=== PATIENT | female | born 1955 | race Caucasian/White ===

== ENCOUNTER 2023-11-28 11:52 | Outpatient (OUT) | payer MEDICARE, SELFPAY ==
[2023-11-28 12:12] LABS: Basophils Percent Auto 0.6 % (0.2-2.0); Eosinophils Absolute Auto 0.1 10^3/uL (0.0-0.7); Eosinophils Percent Auto 1.5 % (0.9-7.0); Hematocrit 41.2 % (36.0-48.0); Immature Granulocytes Abs Auto 0.01 10^3/uL (0.00-0.03); Immature Granulocytes Pct Auto 0.1 % (0.0-0.5); Lymphocytes Absolute Auto 1.7 10^3/uL (1.2-3.8); Mean Corpuscular HGB Conc 31.6 g/dL (29.9-35.2); Mean Corpuscular Hemoglobin 29.9 pg (26.7-34.0); Mean Corpuscular Volume 94.7 fL (81.0-99.0); Mean Platelet Volume 9.3 fL (9.5-13.5); Monocytes Absolute Auto 0.5 10^3/uL (0.3-0.8); Monocytes Percent Auto 7.6 % (1.7-12.0); Neutrophils Absolute Auto 4.5 10^3/uL (1.4-6.5); Neutrophils Percent Auto 65.2 % (43.0-75.0); Platelet Count 223 10^3/uL (150-450); Red Blood Count 4.35 10^6/uL (4.20-5.40); Red Cell Distribution Width 12.6 % (11.0-15.0); White Blood Count 6.9 10^3/uL (4.0-11.0)
[2023-11-28 14:00] LABS: Alanine Aminotransferase 23 U/L (14-59); Albumin Level 3.7 g/dL (3.4-5.0); Alkaline Phosphatase 102 U/L (46-116); Anion Gap 10.2; Aspartate Amino Transferase 19 U/L (15-37); BUN Creatinine Ratio 19.1; Bilirubin Direct 0.1 mg/dL (0.0-0.2); Bilirubin Total 0.4 mg/dL (0.2-1.0); Calcium 9.1 mg/dL (8.5-10.1); Carbon Dioxide 31.7 mmol/L (21.0-32.0); Chloride 104 mmol/L (98-107); Chol HDL Ratio 3.4; Cholesterol 213 mg/dL (<=200); Estimated GFR (African America >60 (>=60); Estimated GFR (Non-African Ame >60 (>=60); Globulin 3.8 g/dL; Glucose 81 mg/dL (74-106); HDL Cholesterol 63 mg/dL (40-60); Potassium 3.9 mmol/L (3.5-5.1); Sodium 142 mmol/L (136-145); Total Protein 7.5 g/dL (6.4-8.2); Triglycerides 102 mg/dL (<=150); VLDL CHOLESTEROL 20.4 mg/dL
== END 2023-11-28 11:53 | disposition home or self-care (01) ==
LOC: LAB 11:55
PROVIDERS: PCP Family Medicine; Visit Provider Family Medicine
DX: Z79.899 Other long term (current) drug therapy (principal); E78.5 Hyperlipidemia, unspecified; E66.9 Obesity, unspecified
CPT/HCPCS: 36415; 80048; 80061; 80076; 84443; 85025

== ENCOUNTER 2024-12-18 12:25 | Outpatient (OUT) | payer MEDICARE, SELFPAY ==
--- OUTSIDE RECORDS SUMMARY | 2024-12-18 12:39 | XMS_ITS | CCD ---
Author Organization [facility] Care Team Providers Care Marine Mechanic Name Role Phone Unavailable Primary Care Provider Unavailabl e DAVIS, DOV Referring Unavailable DAVIS, DOV Referring Unavailable DAVIS, DOV Referring Unavailable DAVIS, DOV Referring Unavailable DAVIS, DOV Referring Unavailable DAVIS, DOV Referring Unavailable DAVIS, DOV Referring Unavailable CHARLEEN Munoz, DR VALADEZ Attending Unavailable MALAIKA, DR ALEXANDRO Hensley Consulting Unavailable DR DOMINGUEZ LEAL Primary Care Unavailable CHARLEEN Munoz, DR VALADEZ Admitting Unavailable CHARLEEN Munoz, DR VALADEZ Consulting Unavailable DO Prem Carrizales Primary Care Provider [phone] MD Raffaele Fernandez II Attending Provider Raffaele Fernandez II Unavailable Raffaele Fernandez II Admitting UnavailRaffaele Cedillo II Attending UnavailPrem Chairez Primary Care Unavailable Dominguez Leal MD Primary Care Provider Dominguez Leal MD Unavailable DOMINGUEZ LEAL Attending Unavailable DOMINGUEZ LEAL Attending Unavailable KENNA HERNANDEZ Attending Unavailable KENNA HERNANDEZ Referring Unavailable KENNA HERNANDEZ Referring Unavailable Medications Current Medications Medication Drug Class(es) Dates Sig (Normalized) Sig (Original) acetaminophen 325 mg / HYDROcodone bitartrate 5 mg oral tablet (1 source) Opioid Agonist take 1 tablet by mouth every six hours HYDROcodone-Aceta minophen 5-325 MG 1 tablet as needed Orally every 6 hrs Active [id number] 200 actuat albuterol 0.09 mg/actuat metered dose inhaler (2 sources) beta2-Adrenergic Agonist Start: 11-25-2024 take 2 puff(s) by inhalation every four hours for wheezing albuterol HFA 90 mcg/act inhaler Indications: Acute bronchitis due to other specified organisms Inhale 2 puffs every 4 (four) hours if needed for wheezing or shortness of breath 18 g 2 11/25/2024 Active Start: 11-25-2024 take 2 puff(s) by in halation every four hours for wheezing albuterol HFA 90 mcg/act inhaler Indications: Acute bronchitis due to other specified organisms Inhale 2 puffs every 4 (four) hours if needed for wheezing or shortness of breath 18 g 2 11/25/2024 Active Dexamethasone / sodium phosphate (3 sources) Corticosteroid End: 11-25-2024 dexAMETHasone Sodium Phosphate (ACTIVE INJECTION D IJ) Inject as directed Steroid into knee every 3 months - Dr. Fernandez 11/25/2024 Discontinued dexAMETHasone So dium Phosphate (ACTIVE INJECTION D IJ) Inject as directed Steroid into knee every 3 months - Dr. Fernandez Active dicyclomine hydrochloride 20 mg oral tablet (3 sources) Anticholinergic End: 11-25-2024 dicyclomine (Bentyl) 20 MG tablet Take 40 mg by mouth in the morning and 40 mg at noon and 40 mg in the evening and 40 mg before bedtime. Take before meals. 11/25/2024 Discontinued levoFLOXacin 750 mg oral tablet (2 sources) Quinolone Antimicrobial Start: 11-25-2024 End: 12-02-2024 take 1 tablet by mouth once daily levoFLOXacin (Levaquin) 750 MG tablet Indications: Acute bronchitis due to other specified organisms Take 1 tablet (750 mg) by mouth Daily for 7 days 7 tablet 11/25/2024 12/02/2024 Active Multivitamin preparation (6 sources) Start: 01-23-2024 take 1 tablet by mouth once daily Multivitamin Active 1 TAB PO Daily January 23, 2024 12:00am take 1 tablet by mouth once josé luis y Multivitamin - 1 tablet Orally Once a day Active Multivitamin tablet (1 source) Start: 01-23-2024 take 1 tablet by mouth once daily Multivitamin tablet Active 1 TAB PO Daily January 22, 2024 11:00pm predniSONE 50 mg oral tablet (2 sources) Start: 11-25-2024 End: 12-01-2024 take 1 tablet by mouth once daily predniSONE (Deltasone) 50 MG tablet Indications: Acute bronchitis due to other specified organisms Take 1 tablet (50 mg) by mouth Daily for 6 days 6 tablet 11/25/2024 12/01/2024 Active Turmeric extract (7 sources) Start: 01-23-2024 Turmeric 400 m g capsule Active MG PO January 22, 2024 11:00pm Start: 01-23-2024 Turmeric Activ e MG PO January 23, 2024 12:00am Turmeric Active Completed/Discontinued Medications Medication Drug Class(es) Dates Sig (Normalized) Sig (Original) triamcinolone acetonide 40 mg/ml injectable suspension (6 sources) Corticosteroid Start: 02-16-2023 Kenalog-40 Sep, 120 mg Problems Active Problems Problem Classification Problem Date Documented Da te Episodic/Chronic Acute bronchitis (4 sources) Acute infective bronchitis; Translations: [Acute bronchitis due to other specified organisms] Onset: 11-25-2024 11-25-2024 Episodic Disorders of lipid metabolism (3 sources) Dyslipidemia; Translations: [Hyperlipidemia, unspecified] Onset: 11-28-2023 11-28-2023 Chronic Osteoarthritis (18 sources) Unilateral primary osteoarthritis, left knee; Translations: [Osteoarthritis of left knee joint] Onset: 01-31-2023 Chronic Other gastrointestinal disorders (3 sources) Irritable bowel syndrome with diarrhea; Translations: [Irritable bowel syndrome with diarrhea] Onset: 11-28-2023 11-28-2023 Chronic Other non-traumatic joint disorders (5 sources) Pain in left knee; Translations: [PAIN IN LEFT KNEE] Onset: 01-30-2023 Episodic Other nutritional; endocrine; and metabolic disorders (3 sources) Body mass index 30+ - obesity; Translations: [Obesity, unspecified] Onset: 11-28-2023 11-28-2023 Chronic Spondylosis; intervertebral disc disorders; other back problems (3 sources) Degeneration of cervical intervertebral disc; Translations: [Other cervical disc degeneration, unspecified cervical region] Onset: 11-28-2023 11-28-2023 Chronic Substance-related disorders (1 source) Nicotine dependence, cigarettes, uncomplicated; Translations: [NICOTINE DEPEND CIGARETTES UNCOMP] Onset: 01-31-2023 Chronic Unclassified (1 source) Pain in left knee; Translations: [Pain in left knee] Onset: 02-16-2023 Varicose veins of lower extremity (3 sources) Venous varices; Translations: [Symptomatic varicose veins] Episodic Past or Other Problems Problem Classification Problem Date Documented Da te Episodic/Chronic Cardiac dysrhythmias (3 sources) Palpitations; Translations: [Palpitations] Onset: 11-28-2023 11-28-2023 Episodic Mood disorders (3 sources) Mood disorders Onset: 11-28-2023 11-28-2023 Other aftercare (3 sources) Long-term current use of drug therapy; Translations: [Other custodial (current) drug therapy] Onset: 11-28-2023 11-28-2023 Episodic Other skin disorders (3 sources) Vitiligo; Translations: [Vitiligo] Onset: 11-28-2023 11-28-2023 Episodic Results Test Name Value Interpretation Reference Range Facility BI MAMMOGRAM SCREENING TOMOS CHASEIS BILATERALon 01-23-2024 BI MAMMOGRAM SCREENING TOMOSYNTHESIS BILATERAL This is a summary report. The complete report is available in the patient's medical record. If you cannot access the medical record, please contact the sending organization for a detailed fax or copy. EXAM: BI MAMMOGRAM SCREENING TOMOSYNTHESIS BILATERAL DATE: 01/23/2024 10:35 AM CLINICAL HISTORY: screening. COMPARISONS: 01/16/2023, 01/10/2022, 01/04/2021, and left breast ultrasound 01/23/2023. TECHNIQUE: Routine full-field digital mammograms and 3D breast tomosynthesis of both breasts were obtained. FINDINGS: There are no developing masses, suspicious microcalcifications, or areas of architectural distortion identified on the current study. No significant changes are identified from the prior studies, given differences in technique and positioning. Essentially stable left breast cysts. IMPRESSION: BIRADS 2 - Benign Follow-up: Routine Screening Mamm. Density: Scattered fibroglandular density [2]. Board Certified Radiologists. Accredited by the ACR and FDA. MAMMOGRAPHY IS VERY IMPORTANT TO YOUR HEALTH. THE CURRENT [place] [employer] OF [employer] AND NATIONAL COMPREHENSIVE CANC[employer] NETWORK GUIDELINES RECOMMENDS ANNUAL MAMMOGRAPHY BEGINNING AT AGE 40. THIS FACILITY UTILIZES A REMINDER SYSTEM TO ENSURE ALL PATIENTS RECEIVE REMINDER NOTIFICATIONS AT THE APPROPRIATE TIME BASED ON THE RECOMMENDATIONS OF THIS EXAM. ELECTRONICALLY SIGNED BY: Alexandro Coker MD Normal Not Available XR knee LT 4V*on 02-16-2023 XR knee LT 4V* [facility] [address] [place] [address] [place] [address] XRay Report Signed Patient: Joslyn Jurado MR#: [id number] 0 : 1955 Acct:[id number] Age/Sex: 67 / F ADM Date: 02/16/23 Loc: [facility] Room: Type: [facility] Attending Dr: Raffaele Fernandez II, MD Copies to: Raffaele Fernandez MD Ordering Provider: Raffaele Fernandez MD Date of Service: 02/16/23 XR/XR knee LT 4V*: Acute pain of left knee ([id number]) XR/XR pelvis 1-2V: Acute pain of left knee AP PELVIS: Left knee 4 views CLINICAL HISTORY: Chronic left knee pain for years. COMPARISON: None Pelvis: No acute bony process or significant degenerative change involving the hips. Mild degenerative changes SI joints. Left knee: Mild degenerative changes without acute bony process. Lateral patellofemoral joint space narrowing. XR/XR pelvis 1-2V IMPRESSION: MILD DEGENERATIVE CHANGES OF THE LEFT KNEE WITHOUT ACUTE BONY PROCESS. Impression dictated by: Colby Jimenez Jr., D.O.02/16/2023 2:47 PM Dictation Location: [place] [address] Transcribed By: [facility] 02/16/23 1447 Dictated By: Colby Jimenez Jr, DO 02/16/23 1445 Signed By: 02/16/23 1447 Normal [facility] XR knee LT 4V* [facility] [employer] Other XR knee LT 4V* [facility] Main [facility] [employer] Other XR knee LT 4V* [address] [facility] [employer] Other XR knee LT 4V* [place] [address] No rt [employer] Other XR knee LT 4V* XRay Report [employer] Other XR knee LT 4V* Signed [employer] Other XR knee LT 4V* Patient: Joslyn Jurado MR#: [id number] [employer] Other XR knee LT 4V* 0 [employer] Other XR knee LT 4V* : 1955 Acct:[id number] [employer] Other XR knee LT 4V* Age/Sex: 67 / F ADM Date: 02/16/23 [employer] Other XR knee LT 4V* Loc: [facility] Room: Type: [facility] [employer] Other XR knee LT 4V* Attending Dr: Raffaele Fernandez II, MD [employer] Other XR knee LT 4V* Copies to: Raffaele Fernandez MD [employer] Other XR knee LT 4V* Ordering Provider: Raffaele Fernandez MD [employer] Other XR knee LT 4V* Date of Service: 02/16/23 [employer] Other XR knee LT 4V* XR/XR knee LT 4V*: Acute pain of left knee [employer] Other XR knee LT 4V* ([id number]) XR/XR pelvis 1-2V: Acute pain of left knee [employer] Other XR knee LT 4V* AP PELVIS: Left knee 4 views [employer] Other XR knee LT 4V* CLINICAL HISTORY: Chronic left knee pain for years. [employer] Other XR knee LT 4V* COMPARISON: None [facility] [employer] Other XR knee LT 4V* Pelvis: No acute bony process or significant degenerative change involving the hips. Mild [employer] Other XR knee LT 4V* degenerative changes SI joints. [employer] Other XR knee LT 4V* Left knee: Mild degenerative changes without acute bony process. Lateral patellofemoral joint space [employer] Other XR knee LT 4V* narrowing. [employer] Other XR knee LT 4V* XR/XR pelvis 1-2V [employer] Other XR knee LT 4V* IMPRESSION: [employer] Other XR knee LT 4V* MILD DEGENERATIVE CHANGES OF THE LEFT KNEE WITHOUT ACUTE BONY PROCESS. [employer] Other XR knee LT 4V* Impression dictated by: Colby Jimenez Jr., D.OTammy02/16/2023 2:47 PM [employer] Other XR knee LT 4V* Dictation Location: [facility] [employer] Other XR knee LT 4V* Transcribed By: PWS 02/16/23 [facility] [employer] Other XR knee LT 4V* Dictated By: Colby Jimenez Jr, DO 02/16/23 [facility] [employer] Other XR knee LT 4V* Signed By: [employer] Other XR knee LT 4V* 02/16/23 [facility] [employer] Other Screening Mammogram, Viviana abreu 01-10-2022 Screening Mammogram, Bilateral CLINICAL HISTORY: Screening Mammogram COMPARISON: 2020, 2019, 2016 and 2015 TECHNIQUE: 2D and 3D mammogram imaging of both breasts was performed. RESULT: DENSITY: There are scattered areas of fibroglandular density. Redemonstration of nodular density in the inferolateral left breast slightly increased in size since 2020. Prior ultrasound demonstrates a simple cyst in this region. There is no new suspicious mass, asymmetry, architectural distortion, or calcification. IMPRESSION: BIRADS 2 : BENIGN FINDINGS, NORMAL INTERVAL FOLLOW UP. FOLLOW-UP: 12 months DENSITY: Scattered MAMMOGRAPHY IS VERY IMPORTANT TO YOUR HEALTH. THE CURRENT [place] [employer] OF RAD[employer] AND NATIONAL COMPREHENSIVE CANCER NETWORK GUIDELINES RECOMMENDS ANNUAL MAMMOGRAPHY BEGINNING AT AGE 40 THIS FACILITY USES A REMINDER SYSTEM TO ENSURE ALL PATIENTS RECEIVE REMINDER NOTIFICATIONS AT THE APPROPRIATE TIME BASED ON THE RECOMMENDATIONS OF THIS EXAM. Board Certified Radiologist. Accredited by the ACR and FDA. Report reported and signed by KALYN RANDHAWA on 01/10/2022 1410 Normal [facility] [id number] 12-31-2020 SARS-CoV-2 Normal [facility] Comment on above: Performed By: #### C OVID #### [facility] [address] [place] [address] [id number] Engineering And Scientific Programmer: Omid Mulligan MD SARS-CoV-2 Not Detected Normal [facility] Comment on above: Result Comment: The specimen is NEGATIVE for SARS-CoV-2, the novel coronavirus associated with COVID-19. A negative result does not rule out COVID-19. This test has been authorized by the FDA under an Emergency Use Authorization (EUA) for use by authorized laboratories. [employer] SARS-CoV-2 Reagents for [employer] System are designed to detect the virus that causes COVID-19 in patients with signs and symptoms of infection who are suspected of COVID-19. An individual without symptoms of COVID-19 and who is not shedding SARS-CoV-2 virus would expect to have a negative (not detected) result in this assay. Fact sheet for Healthcare Providers: https://www.fda.gov/media/307869/download Fact sheet for Patients: https://www.fda.gov/media/297762/download METHODOLOGY: RT-PCR Performed By: #### C OVID #### [facility] [address] [place] [id number] Engineering And Scientific Programmer: Omid Mulligan MD [id number] 12-30-2020 SARS-CoV-2 Source .NASOPHARYNGEAL SWAB Normal [facility] Comment on above: Performed By: #### C OVID #### [facility] [employer] [address] [place] [address] [phone] Engineering And Scientific Programmer: Omid Mulligan MD [id number] 12-24-2020 SARS-CoV-2 Not Detected Normal [facility] Comment on above: Result Comment: The specimen is NEGATIVE for SARS-CoV-2, the novel coronavirus associated with COVID-19. A negative result does not rule out COVID-19. Fredrick SARS-CoV-2 for use on the Fredrick [employer] is a real-time RT-PCR test intended for the qualitative detection of nucleic acids from SARS-CoV-2 in clinician-collected nasal, nasopharyngeal, and oropharyngeal swab specimens from individuals who meet COVID-19 clinical and/or epidemiological criteria. Fredrick SARS-CoV-2 is for use only under Emergency Use Authorization (EUA) in laboratories certified under Clinical Laboratory Improvement Amendments of 1988 (CLIA), 42 U.S.C. ?263a, that meet requirements to perform high or moderate complexity tests. An individual without symptoms of COVID-19 and who is not shedding SARS-CoV-2 virus would expect to have a negative (not detected) result in this assay. Fact sheet for Healthcare Providers: https://www.fda.gov/media/942922/download Fact sheet for Patients: https://www.fda.gov/media/933194/download METHODOLOGY: RT-PCR Performed By: #### C OVID #### [facility] [address] [phone] Engineering And Scientific Programmer: Omid Mulligan MD SARS-CoV-2 [facility] Comment on above: Performed By: #### C OVID #### [employer] [address] [place] [address] [phone] Engineering And Scientific Programmer: Omid Mulligan MD [id number] 12-23-2020 SARS-CoV-2 Source .NASOPHARYNGEAL SWAB Normal [facility] Comment on above: Performed By: #### C OVID #### [facility] [address] [place] [address] [phone] Engineering And Scientific Programmer: MD SUSAN Marte-CoV-2on 12-07-2020 SARS-CoV-2 Not Detected Normal [facility] Comment on above: Result Comment: The specimen is NEGATIVE for SARS-CoV-2, the novel coronavirus associated with COVID-19. A negative result does not rule out COVID-19. Fredrick SARS-CoV-2 for use on the Fredrick [employer] is a real-time RT-PCR test intended for the qualitative detection of nucleic acids from SARS-CoV-2 in clinician-collected nasal, nasopharyngeal, and oropharyngeal swab specimens from individuals who meet COVID-19 clinical and/or epidemiological criteria. Fredrick SARS-CoV-2 is for use only under Emergency Use Authorization (EUA) in laboratories certified under Clinical Laboratory Improvement Amendments of 1988 (CLIA), 42 U.S.C. ?263a, that meet requirements to perform high or moderate complexity tests. An individual without symptoms of COVID-19 and who is not shedding SARS-CoV-2 virus would expect to have a negative (not detected) result in this assay. Fact sheet for Healthcare Providers: https://www.fda.gov/media/529517/download Fact sheet for Patients: https://www.fda.gov/media/005448/download METHODOLOGY: RT-PCR Performed By: #### C OVID #### [address] [id number] Engineering And Scientific Programmer: Omid Mulligan MD SARS-CoV-2 [facility] Comment on above: Performed By: #### C OVID #### [address] [phone] Engineering And Scientific Programmer: Omid Mulligan MD SARS-CoV-2,[facility] Comment on above: Performed By: #### C OVID #### [address] [phone] Engineering And Scientific Programmer: Omid Mulligan MD [id number] 12-05-2020 SARS-CoV-2 Source .NASOPHARYNGEAL SWAB [facility] Comment on above: Performed By: #### C OVID #### [address] [id number] Engineering And Scientific Programmer: Omid Mulligan MD [id number] 11-20-2020 SARS-CoV-2 Not Detected [facility] Comment on above: Result Comment: The specimen is NEGATIVE for SARS-CoV-2, the novel coronavirus associated with COVID-19. A negative result does not rule out COVID-19. Fredrick SARS-CoV-2 for use on the Fredrick [employer] is a real-time RT-PCR test intended for the qualitative detection of nucleic acids from SARS-CoV-2 in clinician-collected nasal, nasopharyngeal, and oropharyngeal swab specimens from individuals who meet COVID-19 clinical and/or epidemiological criteria. Fredrick SARS-CoV-2 is for use only under Emergency Use Authorization (EUA) in laboratories certified under Clinical Laboratory Improvement Amendments of 1988 (CLIA), 42 U.S.C. ?263a, that meet requirements to perform high or moderate complexity tests. An individual without symptoms of COVID-19 and who is not shedding SARS-CoV-2 virus would expect to have a negative (not detected) result in this assay. Fact sheet for Healthcare Providers: https://www.fda.gov/media/711067/download Fact sheet for Patients: https://www.fda.gov/media/079173/download METHODOLOGY: RT-PCR Performed By: #### C OVID #### [address] [id number] Engineering And Scientific Programmer: Omid Mulligan MD SARS-CoV-2 [facility] Comment on above: Performed By: #### C OVID #### [address] [phone] Engineering And Scientific Programmer: Omid Mulligan MD SARS-CoV-2,[facility] Comment on above: Performed By: #### C OVID #### [address] [phone] Engineering And Scientific Programmer: MD ISABELA MarteCoV-2on 11-19-2020 SARS-CoV-2 Source .NASOPHARYNGEAL SWAB [facility] Comment on above: Performed By: #### C OVID #### [facility] [address] [place] [address] Engineering And Scientific Programmer: Omid Mulligan MD [id number] 11-08-2020 SARS-CoV-2 Not Detected Normal Not Detected [facility] Comment on above: Result Comment: (NOT E) This nucleic acid amplification test was developed and its performance characteristics determined by [facility]. Nucleic acid amplification tests include PCR and TMA. This test has not been FDA cleared or approved. This test has been authorized by FDA under an Emergency Use Authorization (EUA). This test is only authorized for the duration of time the declaration that circumstances exist justifying the authorization of the emergency use of in vitro diagnostic tests for detection of SARS-CoV-2 virus and/or diagnosis of COVID-19 infection under section 564(b)(1) of the Act, 21 U.S.C. 360bbb-3(b) (1), unless the authorization is terminated or revoked sooner. When diagnostic testing is negative, the possibility of a false negative result should be considered in the context of a patient's recent exposures and the presence of clinical signs and symptoms consistent with COVID-19. An individual without symptoms of COVID- 19 and who is not shedding SARS-CoV-2 virus would expect to have a negative (not detected) result in this assay. Performed At: [facility] [address] [facility] [place] [id number] Ana María Najera MD Ph:[phone] Performed By: #### A COV #### [facility] [address] [place] [address] Engineering And Scientific Programmer: Dick German MD [id number] 10-31-2020 SARS-CoV-2 Not Detected Normal Not Detected [facility] Comment on above: Result Comment: (NOT E) This nucleic acid amplification test was developed and its performance characteristics determined by [facility]. Nucleic acid amplification tests include PCR and TMA. This test has not been FDA cleared or approved. This test has been authorized by FDA under an Emergency Use Authorization (EUA). This test is only authorized for the duration of time the declaration that circumstances exist justifying the authorization of the emergency use of in vitro diagnostic tests for detection of SARS-CoV-2 virus and/or diagnosis of COVID-19 infection under section 564(b)(1) of the Act, 21 U.S.C. 360bbb-3(b) (1), unless the authorization is terminated or revoked sooner. When diagnostic testing is negative, the possibility of a false negative result should be considered in the context of a patient's recent exposures and the presence of clinical signs and symptoms consistent with COVID-19. An individual without symptoms of COVID- 19 and who is not shedding SARS-CoV-2 virus would expect to have a negative (not detected) result in this assay. Performed At: [facility] [address] [facility] [place] [id number] Ana María Najera MD Ph:[phone] Performed By: #### A COV #### [facility] [address] [place], [place] [id number] Engineering And Scientific Programmer: Dick German MD [id number] 10-16-2020 SARS-CoV-2 Not Detected Normal Not Detected [facility] Comment on above: Result Comment: (NOT E) This nucleic acid amplification test was developed and its performance characteristics determined by [facility]. Nucleic acid amplification tests include PCR and TMA. This test has not been FDA cleared or approved. This test has been authorized by FDA under an Emergency Use Authorization (EUA). This test is only authorized for the duration of time the declaration that circumstances exist justifying the authorization of the emergency use of in vitro diagnostic tests for detection of SARS-CoV-2 virus and/or diagnosis of COVID-19 infection under section 564(b)(1) of the Act, 21 U.S.C. 360bbb-3(b) (1), unless the authorization is terminated or revoked sooner. When diagnostic testing is negative, the possibility of a false negative result should be considered in the context of a patient's recent exposures and the presence of clinical signs and symptoms consistent with COVID-19. An individual without symptoms of COVID- 19 and who is not shedding SARS-CoV-2 virus would expect to have a negative (not detected) result in this assay. Performed At: [facility] [address] [place], [place] [id number] Ana María Najera MD Ph:[phone] Performed By: #### A COV #### [facility] [address] [place], [place] [id number] Engineering And Scientific Programmer: Dick German MD Vital Signs Date Time Vital Sign Value Performing Clinician Facility 11-25-2024 11:03-0500 Body height 157.5 cm Dominguez Leal MD Work Phone: [facility] 11-25-2024 11:03-0500 Body mass index (BMI) [Ratio] 33.65 kg/m2 Dominguez Leal MD Work Phone: [facility] 11-25-2024 11:03-0500 Body temperature 97.3 [degF] Dominguez Leal MD Work Phone: [facility] 11-25-2024 11:03-0500 Body weight 83.46 kg Dominguez Leal MD Work Phone: [facility] 11-25-2024 11:03-0500 Diastolic blood pressure 86 mm[Hg] Dominguez Leal MD Work Phone: [facility] 11-25-2024 11:03-0500 Heart rate 96 /min Dominguez Leal MD Work Phone: [facility] 11-25-2024 11:03-0500 Respiratory rate 24 /min Dominguez Leal MD Work Phone: [facility] 11-25-2024 11:03-0500 SaO2% (BldA) [Mass fraction] 87 % Dominguez Leal MD Work Phone: [facility] 11-25-2024 11:03-0500 Systolic blood pressure 180 mm[Hg] Dominguez Leal MD Work Phone: [facility] 02-16-2023 10:00-0400 Body height 160.02 cm Raffaele Fernandez II Other [facility] Other 02-16-2023 10:00-0400 Body mass index (BMI) [Ratio] 32.77 kg/m2 Raffaele Fernandez II Other [facility] Other 02-16-2023 10:00-0400 Body weight 83.92 kg Raffaele Fernandez II Other [facility] Other Encounters Encounter Date Encounter Type Care Provider Facility Start: 11-25-2024 End: 11-25-2024 [employer] Dominguez Leal MD Work Phone: [facility] Start: 11-25-2024 End: 11-25-2024 [employer] Dominguez Leal MD Work Phone: [facility] Start: 11-25-2024 End: 11-25-2024 Office outpatient visit 15 minutes Dominguez Leal MD Work Phone: [facility] Comment on above: Acute bronchitis due to other specified organisms (Primary Dx) Start: 11-25-2024 End: 11-25-2024 ambulatory DOMINGUEZ LEAL Not Available Start: 10-31-2024 End: 10-31-2024 ambulatory [facility] Work Phone: Start: 10-31-2024 End: 10-31-2024 Patient encounter procedure [facility]ician [facility] Work Phone: Start: 2024 End: 2024 ambulatory [facility] Work Phone: Start: 2024 End: 2024 Patient encounter procedure Critical Access Hospital Physician [facility] Work Phone: Start: 04-23-2024 End: 04-23-2024 ambulatory [facility] Work Phone: Start: 04-23-2024 End: 04-23-2024 Patient encounter procedure Critical [facility] Hospital Physician [facility] Work Phone: Start: 01-23-2024 End: 01-23-2024 ambulatory [facility] Work Phone: Start: 01-23-2024 End: 01-23-2024 Patient encounter procedure [facility] Work Phone: Start: 01-23-2024 End: 01-23-2024 ambulatory KENNA HERNANDEZ Not Available Start: 11-28-2023 Patient encounter procedure Dominguez Leal MD Work Phone: [facility] Start: 11-28-2023 End: 11-28-2023 ambulatory DOMINGUEZ LEAL Not Available Start: 10-19-2023 End: 10-19-2023 ambulatory Raffaele Corrales II Other [employer] Other Start: 10-19-2023 Office outpatient vi sit 15 minutes Raffaele Jim II [facility] Start: 07-06-2023 End: 07-06-2023 ambulatory Raffaele Jim II Other [employer] Other Start: 07-06-2023 Office outpatient vi sit 25 minutes Raffaele Jim II [facility] Start: 02-16-2023 Office outpatient ne w 45 minutes Raffaele Corrales II [facility] Start: 02-16-2023 End: 02-16-2023 ambulatory Raffaele M Jim II Facility:[facility] Start: 02-16-2023 End: 02-16-2023 ambulatory DO Prem Carrizales Work Phone: [facility] Work Phone: Start: 02-16-2023 End: 02-16-2023 Patient encounter procedure DO Prem Carrizales Work Phone: [facility] Start: 01-30-2023 End: 01-30-[address] ALLYSON VILLASEÑOR . Facility: Start: 12-30-2020 End: 12-31-2020 Patient encounter procedure DOV DAVIS [facility] Start: 12-30-2020 End: 12-30-2020 Subsequent hospital visit by physician REGGIE BOURGEOIS DOCTOR Start: 12-23-2020 End: 12-24-2020 Patient encounter procedure TAJ DAVIS [facility] Start: 12-23-2020 End: 12-23-2020 Subsequent hospital visit by physician REGGIE YE LAB DOCTOR Start: 12-05-2020 End: 12-06-2020 Patient encounter procedure TAJ DAVIS [facility] Start: 12-05-2020 End: 12-05-2020 Subsequent hospital visit by physician REGGIE YE LAB DOCTOR Start: 11-18-2020 End: 11-19-2020 Patient encounter procedure TAJ DAVIS [facility] Start: 11-18-2020 End: 11-18-2020 Subsequent hospital visit by physician REGGIE BOURGEOIS DOCTOR Start: 11-05-2020 End: 11-06-2020 Patient encounter procedure TAJ DAVIS [facility] Start: 11-05-2020 End: 11-05-2020 Subsequent hospital visit by physician REGGIE BOURGEOIS DOCTOR Start: 10-28-2020 End: 10-29-2020 Patient encounter procedure TAJ DAVIS [facility] Start: 10-28-2020 End: 10-28-2020 Subsequent hospital visit by physician REGGIE YE LAB DOCTOR Start: 10-15-2020 End: 10-16-2020 Patient encounter procedure TAJ DAVIS [facility] Start: 10-15-2020 End: 10-15-2020 Subsequent hospital visit by physician REGGIE YE LAB DOCTOR Procedures Date Procedure Procedure Detail Performing Clinician Start: 01-23-2024 Mammography Dominguez aguilera MD Work Phone: Start: 02-16-2023 Pelvis X-ray DO Prem Carrizales Work Phone: Start: 02-16-2023 Radiologic examinati on of knee DO Prem Carrizales Work Phone: Start: 02-28-2022 Colonoscopy Dominguez aguilera MD Work Phone: Start: 10-15-2020 COVID-19 AMBULATORY ZEENAT DAVIS Plan of Treatment Date Care Activity Detail Author Start: 12-27-2031 Screening for malign ant neoplasm of colon [facility] Start: 01-27-2025 End: 01-27-2025 Professional / ancillary services management 01/27/2025 11:30 AM EDT Ancillary Procedure [facility] [place] [address] [place] [phone] [facility] [place] Start: 01-27-2025 End: 01-27-2025 Patient encounter procedure 01/27/2025 10:30 AM EDT Office Visit [facility] [address] [place] [phone] Kenna Hernandez DO [address] [place] [address] [facility] Start: 01-22-2025 Screening for malign ant neoplasm of breast Mammogram [facility] Start: 12-18-2024 End: 12-18-2024 Patient encounter procedure 12/18/2024 11:30 AM EST Office Visit [facility] [address] [place] [phone] Dominguez Leal MD [address] [place] [phone] [facility] Start: 12-16-2024 End: 12-16-2024 Patient encounter procedure 12/16/2024 1:15 PM EST Office Visit [facility] [address] [place] [phone] Dominguez Leal MD [address] [place] [phone] [facility] Start: 11-28-2024 Medicare Annual Wellness (AWV) Medicare Annual Wellness (AWV) [facility] Start: 11-25-2024 End: 11-25-2024 Patient encounter procedure 11/25/2024 11:00 AM EST [facility] [address] [place] [address] Dominguez Leal MD [address] [place] [address] Arrived [facility] Comment on above: Arrived Start: 06-30-2024 Influenza vaccination Influenza Vacc ine (#1) [facility] Start: 10-15-2020 Annual Wellness Visi t (AWV) Annual Wellness Visit (AWV) [place], [place] Start: 2020 Pneumococcal 65+ yea rs Vaccine (1 of 1 - PPSV23) Pneumococcal 65+ years Vaccine (1 of 1 - PPSV23) [place], [place] Start: 2020 Pneumococcal Vaccine : 65+ Years (1 of 1 - PCV) Pneumococcal Vaccine: 65+ Years (1 of 1 - PCV) [facility] Start: 06-30-2020 Influenza vaccination Flu vaccine (# 1) [place], [place] Start: 2010 Screening for osteoporosis DEXA (modify frequency per FRAX score) [place], [place] Start: 2005 Screening for malign ant neoplasm of breast Breast cancer screen [place], [place] Start: 2005 Screening for malign ant neoplasm of colon Colon cancer screen colonoscopy [place], [place] Start: 2005 Shingles Vaccine (1 of 2) Shingles Vaccine (1 of 2) [place] Start: 1995 Lipid panel Lipid screen [place] Start: 1976 Screening for malign ant neoplasm of cervix Cervical cancer screen [place], [place] Start: 1974 DTaP/Tdap/Td vaccine (1 - Tdap) DTaP/Tdap/Td vaccine (1 - Tdap) [place], [place] Start: 1971 COVID-19 Vaccine (1 of 2) COVID-19 Vaccine (1 of 2) [facility] Work Phone: Start: 1970 HIV screening HIV screen [place] Start: 1955 Hepatitis C screening Hepatitis C sc reen [place], [place] Start: 1955 Screening for malign ant neoplasm of colon [facility] End: 11-18-2020 COVID-19 COVID-19 Lab Routine Once for 1 Occurrences starting 11/18/2020 until 11/18/2020 [place] Comment on above: Once for 1 Occurrenc es starting 11/18/2020 until 11/18/2020 COVID-19 [facility] [place] End: 12-03-2020 COVID-19 COVID-19 Lab Routine Once for 1 Occurrences starting 12/03/2020 until 12/03/2020 [place] Comment on above: Once for 1 Occurrenc es starting 12/03/2020 until 12/03/2020 End: 12-23-2020 COVID-19 COVID-19 Lab Routine Once for 1 Occurrences starting 12/23/2020 until 12/23/2020 [facility] Phone: Comment on above: Once for 1 Occurrenc es starting 12/23/2020 until 12/23/2020 End: 12-30-2020 COVID-19 COVID-19 Lab Routine Once for 1 Occurrences starting 12/30/2020 until 12/30/2020 [facility] Phone: Comment on above: Once for 1 Occurrenc es starting 12/30/2020 until 12/30/2020 End: 10-15-2020 Covid-19 Ambulatory Covid-19 Ambulatory Lab Routine Once for 1 Occurrences starting 10/15/2020 until 10/15/2020 [place], [place] Comment on above: Once for 1 Occurrenc es starting 10/15/2020 until 10/15/2020 Covid-19 Ambulatory [place], [place] End: 10-28-2020 Covid-19 Ambulatory Covid-19 Ambulatory Lab Routine Once for 1 Occurrences starting 10/28/2020 until 10/28/2020 [place] Comment on above: Once for 1 Occurrenc es starting 10/28/2020 until 10/28/2020 End: 11-05-2020 Covid-19 Ambulatory Covid-19 Ambulatory Lab Routine Once for 1 Occurrences starting 11/05/2020 until 11/05/2020 [facility] [place] Comment on above: Once for 1 Occurrenc es starting 11/05/2020 until 11/05/2020 Immunizations Immunization Date Immunization Notes Care Provider Fa jaziel 01-16-2023 influenza virus vacc ine, unspecified formulation Dominguez Leal MD Work Phone: [facility] Payers Date Payer Category Payer Self-pay [id number] 2021 Medicare (Managed Care) [employer] [id number] 2014 Unknown [id number] 1959 Unknown [id number] 1955 Unknown [id number] 2.840.1.242559.3.579. 2. 1955 Unknown [id number] 2.840.1.780282.3.579. 2. 1955 Unknown [id number] 2.840.1.916283.3.579. 2.175 1955 Unknown [id number] 2.840.1.117735.3.579. 2.175 1955 Unknown [id number] 2.16.840.1.193268.3.579. 2.175 1955 Unknown [id number] 2.16.840.1.758287.3.579. 2.175 1955 Unknown [id number] 2.16.840.1.873408.3.579. 2.175 1955 Unknown [id number] 2.16.840.1.721483.3.579. 2.593 1955 Unknown [id number] 2.16.840.1.100480.3.579. 2.1259 1955 Unknown [id number] 2.16.840.1.906220.3.579. 2.1259 1955 Unknown [id number] 2.16.840.1.143205.3.579. 2.1259 1955 Unknown [id number] 2.16.840.1.217161.3.579. 2.1259 Unknown [place] [employer] [id number] Unknown [id number] [id number]. 2.531 Social History Date Type Detail Facility Tobacco smoking stat [facility] Unknown if ever smoked [place], [place] Start: 1955 Sex Assigned At Not on file [place], [place] Start: 1955 Sex Assigned At Female F [facility] Start: 01-23-2024 End: 11-25-2024 Sex Assigned At [facility] [employer] Other Start: 01-18-2024 End: 01-18-2024 Tobacco smoking status NHIS Smoker (finding) [facility] Start: 10-31-2024 Sex Female (finding) [facility] Start: 01-22-2024 Tobacco smoking stat [facility] Ex-smoker [facility] End: 10-30-2009 History of tobacco use Cigarette Smoker [facility] Start: 01-22-2024 Tobacco use and exposure Smokeless tobacco non-user [facility] Start: 01-23-2024 End: 11-25-2024 Alcoholic beverage intake Current drinker of alcohol (finding) [facility] Start: 01-23-2024 End: 11-25-2024 History of Social function [facility] How often to you hav e a drink containing alcohol? Never [facility] How many standard drinks containing alcohol do you have on a typical day? Patient does not drink [facility] Start: 01-22-2024 Alcohol Comment Caffeine intak e: 2-3 cups per day coffee [facility] History of Present illness Narrative 11-25-2024 Dominguez Leal MD - 11/25/2024 11:33 AM ESTDominguez Leal MD - 11/25/2024 11:00 AM EST Note Date & Type Note Facility 11-25-2024 History of Presen t illness Narrative Associated Problem(s): Acute bronchitis due to other specified organisms Take antibiotics for 7 days. Use prednisone for inflammation. Use sudafed or other decongestants as needed. Use Robitussin or Robitussin-DM for cough. Can use afrin for congestion but no longer than 3 days. Can use Mucinex to bring up phlegm. Use Motrin or Tylenol as needed for fever, aches, or pains. Increase fluid intake and rest. Should improve over next 5-7 days and if no better or worse call for re-evaluation. Images from the original note were not included. Subjective Patient ID: Joslyn Jurado is a 69 y.o. female who presents for Follow-up (Chest congestion ongoing for a week), Cough, and Shortness of Breath. C/o cough, congestion, and rhinorrhea x 1 week. Not checking temp but hot and sweaty. Severe fatigue and no energy. Frequent cough productive sputum. Chest tight and SOB. Severe SOB with minimal exertion. Mild KEARNS and sinus pressure in forehead and cheeks along with postnasal drip. Ears plugged and popping. Sore throat and pain to swallow. Mild nausea. Grandchildren recently sick. Using OTC medication and mild relief. No improvement in symptoms since onset. Review of Systems Respiratory: Negative for cough, shortness of breath and wheezing. Cardiovascular: Negative for chest pain and palpitations. Gastrointestinal: Negative for abdominal pain, diarrhea, nausea and vomiting. Genitourinary: Negative for dysuria. Objective Physical Exam Constitutional: General: She is not in acute distress. Appearance: Normal appearance. HENT: Head: Normocephalic. Right Ear: Tympanic membrane normal. Left Ear: Tympanic membrane normal. Eyes: Extraocular Movements: Extraocular movements intact. Pupils: Pupils are equal, round, and reactive to light. Cardiovascular: Rate and Rhythm: Normal rate and regular rhythm. Heart sounds: No murmur heard. No friction rub. No gallop. Pulmonary: Effort: Pulmonary effort is normal. Breath sounds: Normal breath sounds. No wheezing, rhonchi or rales. Abdominal: General: Bowel sounds are normal. There is no distension. Palpations: Abdomen is soft. Tenderness: There is no abdominal tenderness. There is no guarding or rebound. Musculoskeletal: Cervical back: Neck supple. Right lower leg: No edema. Left lower leg: No edema. Neurological: Mental Status: She is alert. Assessment/Plan Problem List Items Addressed This Visit Acute bronchitis due to other specified organisms - Primary Take antibiotics for 7 days. Use prednisone for inflammation. Use sudafed or other decongestants as needed. Use Robitussin or Robitussin-DM for cough. Can use afrin for congestion but no longer than 3 days. Can use Mucinex to bring up phlegm. Use Motrin or Tylenol as needed for fever, aches, or pains. Increase fluid intake and rest. Should improve over next 5-7 days and if no better or worse call for re-evaluation. Relevant Medications levoFLOXacin (Levaquin) 750 MG tablet predniSONE (Deltasone) 50 MG tablet albuterol HFA 90 mcg/act inhaler documented in this encounter [facility] Evaluation note 10-19-2023 Note Date & Type Note Facility 10-19-2023 Evaluation note Encounter Date Diagnosis Assessment Notes Sep, Primary osteoarthritis of left knee (ICD-10 - M17.12) Sep, Other 1. We had a long discussion with the patient today concerning their left knee osteoarthritis. The radiographs do show osteoarthritis of the knee. At this time the patient would like to avoid surgical intervention. We did discuss the risk and benefits of surgical versus nonoperative management. The patient would like to proceed with nonoperative management. We discussed that our options include injections, physical therapy, and the consistent use of anti-inflammator ies. All 3 of these options, including their risks and benefits, were discussed at length with the patient. 2. Tylenol: Discussed taking Tylenol (acetaminophen). Recommended adjusting their dosing to 1000mg by mouth up to 3 times a day. 3. NSAIDs: Recommend continuing her Lanacane 4. Physical therapy: Discussed formal physical therapy and home regimen. Patient preferred no PT at this time. 5. Injections: Discussed injections as a treatment option. After consent was obtained, the left knee was injected with 3cc Kenalog and 7cc bupivicaine using sterile technique. Patient tolerated the injection well. 6. Follow up 3 months with Tory for consideration of other steroid injections, viscosupplementa tion, or radiofrequency nerve ablation. [facility] Other Evaluation note 07-06-2023 Note Date & Type Note Facility 07-06-2023 Evaluation note Encounter Date Diagnosis Assessment Notes Jun, Primary osteoarthritis of left knee (ICD-10 - M17.12) Jun, Other 1. We had a long discussion with the patient today concerning their left knee osteoarthritis. The radiographs do show osteoarthritis of the knee. At this time the patient would like to avoid surgical intervention. We did discuss the risk and benefits of surgical versus nonoperative management. The patient would like to proceed with nonoperative management. We discussed that our options include injections, physical therapy, and the consistent use of anti-inflammator ies. All 3 of these options, including their risks and benefits, were discussed at length with the patient. 2. Tylenol: Discussed taking Tylenol (acetaminophen). Recommended adjusting their dosing to 1000mg by mouth up to 3 times a day. 3. NSAIDs: Recommended continuing with her ibuprofen and Voltaren gel 4. Physical therapy: Discussed formal physical therapy and home regimen. Patient preferred no PT at this time. 5. Injections: Discussed injections as a treatment option. After consent was obtained, the left knee was injected with 3cc Kenalog and 7cc bupivicaine using sterile technique. Patient tolerated the injection well. 6. Follow up with myself or Tory in 3 months. Would recommend continuing with conservative treatment with steroid injections, Zilretta injections, gel injections, or even considering nerve ablations. [facility] Other Evaluation note 02-16-2023 Note Date & Type Note Facility 02-16-2023 Evaluation note Encounter Date Diagnosis Assessment Notes Jan, Primary osteoarthritis of left knee (ICD-10 - M17.12) Jan, Acute pain of left knee (ICD-10 - M25.562) Jan, Other 1. We had a long discussion with the patient today concerning their left knee osteoarthritis. The radiographs do show osteoarthritis of the knee. At this time the patient would like to avoid surgical intervention. We did discuss the risk and benefits of surgical versus nonoperative management. The patient would like to proceed with nonoperative management. We discussed that our options include injections, physical therapy, and the consistent use of anti-inflammator ies. All 3 of these options, including their risks and benefits, were discussed at length with the patient. 2. Tylenol: Discussed taking Tylenol (acetaminophen). Recommended adjusting their dosing to 1000mg by mouth up to 3 times a day. 3. NSAIDs: Recommended continuing her turmeric, ibuprofen, and Voltaren gel 4. Physical therapy: Discussed formal physical therapy and home regimen. Patient preferred no PT at this time. 5. Injections: Discussed injections as a treatment option. After consent was obtained, the left knee was injected with 3cc Kenalog and 7cc bupivicaine using sterile technique. Patient tolerated the injection well. 6. Follow up 3 months [facility] Other Clinical Note 01-30-2023 Note Date & Type Note Facility 01-30-2023 Note PROCEDURE: XR KNEE L T 4V or > HISTORY: Pain in left knee COMPARISON: None. FINDINGS: BONES:Moderate or greater narrowing of the anterior compartment. Small degenerative osteophytes along the articular margins of all 3 compartments. No significant narrowing of the medial and lateral compartments. No fracture, dislocation, bone lesion. SOFT TISSUES:No visible soft tissue swelling. EFFUSION:None visible. OTHER: Negative. IMPRESSION: 1. No appreciable acute bone abnormality. 2. Moderate or greater degenerative changes of the anterior compartment with possible [id number] contact between the patella and femur (but this may be due to projection). Consider MRI for further evaluation. Electronically authenticated by: ALEXANDRO DAI Date: 2023-01-30 10:34 [facility] Evaluation note Note Date & Type Note Facility Evaluation note No assessment information availa ble [facility] Work Phone: Evaluation note Note Date & Type Note Facility Evaluation note Diagnosis Onset Date Primary osteoarthritis of left knee acute [facility] Work Phone: Evaluation note Note Date & Type Note Facility Evaluation note Diagnosis Onset Date Resolution Primary osteoarthritis of left knee acute October 31 1:29pm [facility] Work Phone: Evaluation note Note Date & Type Note Facility Evaluation note Diagnosis Encounter for Medicare annual wellness exam- Primary Dyslipidemia (CMS/HCC) Other and unspecified hyperlipidemia Obesity (BMI 30-39.9) Encounter for long-term (current) use of medications Encounter for long-term (current) use of other medications Palpitations Acute bronchitis due to other specified organisms- Primary documented in this encounter [facility] History general Narrative - Reported Note Date & Type Note Facility History general Narrative - Reported Type Surgical History foot right bunion removed Surgical History tubular Hospitalization History tubular preg. [facility] Other Summary Purpose Family History No Family History Records Found Relationship Condition Age at Onset Recorded Date/T isra brother Heart disease Unknown father Unknown Automobile accident Unknown Heart disease Unknown Not Specified Unknown Heart failure Unknown Malignant neoplasm Unknown sister Malignant neoplasm Unknown Relationship Condition Age at Onset Recorded Date/T isra brother Heart disease Unknown father Unknown Automobile accident Unknown Heart disease Unknown mother Unknown Heart failure Unknown Malignant neoplasm Unknown sister Malignant neoplasm Unknown Advance Directives No Advanced Directives Records Found Advance Directive Response Recorded Date/ Time Advance Directives No August 04, 2017 10:45am Advance Directive Response Recorded Date/ Time Advance Directives No August 04, 2017 9:45am Chief Complaint and Reason for Visit Chief Complaint 3 MO PER [facility] Reason for Visit Primary osteoarthrit is of left knee Chief Complaint 3 month follow up Reason for Visit Primary osteoarthrit is of left knee Chief Complaint 3 MONTHS Reason for Visit Primary osteoarthrit is of left knee Chief Complaint Admit Date 3 MONTHS October 31, 2024 1: 29pm Reason for Visit Admit Date Primary osteoarthritis of left knee Zafar harrell 2024 1:29pm Additional Source Comments INFORMATION SOURCE (unrecogn ized section and content) DATE CREATED AUTHOR 12/31/2020 [facility] DATE CREATED AUTHOR AUTHOR'S ORGANIZ ATION 01/11/2022 [facility] DATE CREATED AUTHOR AUTHOR'S ORGANIZ ATION 02/02/2023 [facility] DATE CREATED AUTHOR AUTHOR'S ORGANIZ ATION 04/22/2023 [facility] DATE CREATED AUTHOR AUTHOR'S ORGANIZ ATION 11/26/2024 [facility] dical Specialists EPIC Care Teams (unrecognized sec tion and content) Team Status: Active Member Role Status Dates Prem Carrizales DO Primary Care Provider Active Team Status: Inactive Member Role Status Dates Prem Carrizales DO Primary Care Provider Active Raffaele Fernandez II, MD Attending Provider Active Team Status: Inactive Member Role Status Dates Prem Carrizales DO Primary Care Provider Active Start: January 23, 2024 End: January 23, 2024 LYSSA HernandezC Attending Provider Active Start: January 23, 2024 End: January 23, 2024 Team Status: Inactive Member Role Status Dates Prem Carrizales DO Primary Care Provider Active Start: April 23, 2024 End: April 23, 2024 GABRIEL Hernandez Attending Provider Active Start: April 23, 2024 End: April 23, 2024 Team Status: Inactive Member Role Status Dates Prem Carrizales DO Primary Care Provider Active Start: 2024 End: 2024 GABRIEL Hernandez Attending Provider Active Start: 2024 End: 2024 Team Status: Inactive Member Role Status Dates Prem Carrizales DO Primary Care Provider Active Start: October 31, 2024 End: October 31, 2024 Raffaele Fernandez II, MD Attending Provider Active Start: October 31, 2024 End: October 31, 2024 Marine Mechanic Relationship Specialty Start Date End Date Dominguez Leal MD [address] [place] [id number] PCP - General Family Medicine 11/28/23 Dominguez Leal MD [address] [place] [address] PCP - [facility] 06/30/24 Marine Mechanic Relationship Specialty Start Date End Date Dominguez Leal MD [address] [place] [id number] PCP - General Family Medicine 11/28/23 Dominguez Leal MD [address] [place] [id number] PCP - [facility] 06/30/24 Goals (unrecognized section and content) Goals may be documented in a n alternate sectionNo InformationNo InformationNo InformationGoals may be documented in an alternate sectionGoals may be documented in an alternate sectionGoals may be documented in an alternate sectionGoals may be documented in an alternate section REASON FOR VISIT (unrecogniz ed section and content) Reason Comments Follow-up Chest congestion colleen oing for a week Cough Shortness of Breath FOR RECORDS PERTAINING TO PATIENTS WHO ARE OR HAVE BEEN ENROLLED IN A CHEMICAL DEPENDENCY/SUBSTANCEABUSE PROGRAM, SOME INFORMATION MAY BE OMITTED. This clinical summary was aggregated from multiple sources. Caution should be exercised in using it in the provision of clinical care. This summary normalizes information from multiple sources, and as a consequence, information in this document may materially change the coding, format and clinical context of patient data. In addition, data may be omitted in some cases. CLINICAL DECISIONS SHOULD BE BASED ON THE PRIMARY CLINICAL RECORDS. [employer] provides no warranty or guarantee of the accuracy or completeness of information in this document.
[2024-12-18 12:52] LABS: Basophils Percent Auto 0.4 % (0.2-2.0); Eosinophils Absolute Auto 0.1 10^3/uL (0.0-0.7); Eosinophils Percent Auto 1.1 % (0.9-7.0); Hematocrit 36.9 % (36.0-48.0); Hemoglobin 11.9 g/dL (12.0-16.0); Immature Granulocytes Abs Auto 0.02 10^3/uL (0.00-0.03); Immature Granulocytes Pct Auto 0.3 % (0.0-0.5); Lymphocytes Absolute Auto 1.6 10^3/uL (1.2-3.8); Lymphocytes Percent Auto 21.3 % (20.5-60.0); Mean Corpuscular HGB Conc 32.2 g/dL (29.9-35.2); Mean Corpuscular Volume 96.1 fL (81.0-99.0); Mean Platelet Volume 9.1 fL (9.5-13.5); Monocytes Absolute Auto 0.5 10^3/uL (0.3-0.8); Monocytes Percent Auto 6.6 % (1.7-12.0); Neutrophils Absolute Auto 5.3 10^3/uL (1.4-6.5); Neutrophils Percent Auto 70.3 % (43.0-75.0); Platelet Count 245 10^3/uL (150-450); Red Blood Count 3.84 10^6/uL (4.20-5.40); Red Cell Distribution Width 13.2 % (11.0-15.0); White Blood Count 7.5 10^3/uL (4.0-11.0)
[2024-12-18 13:57] LABS: Alanine Aminotransferase 21 U/L (14-59); Albumin Globulin Ratio 0.9; Albumin Level 3.5 g/dL (3.4-5.0); Alkaline Phosphatase 92 U/L (46-116); Anion Gap 13.8; Aspartate Amino Transferase 19 U/L (15-37); BUN Creatinine Ratio 13.5; Bilirubin Direct 0.1 mg/dL (0.0-0.2); Bilirubin Total 0.4 mg/dL (0.2-1.0); Calcium 8.7 mg/dL (8.5-10.1); Chloride 104 mmol/L (98-107); Chol HDL Ratio 3.7; Cholesterol 210 mg/dL (<=200); Estimated GFR (African America >60 (>=60 mL/min/1.73m^2); Estimated GFR (Non-African Ame >60 (>=60 mL/min/1.73m^2); Globulin 3.8 g/dL; Glucose 91 mg/dL (74-106); HDL Cholesterol 57 mg/dL (40-60); Potassium 3.8 mmol/L (3.5-5.1); Sodium 144 mmol/L (136-145); Thyroid Stimulating Hormone 1.648 uIU/mL (0.358-3.740); Total Protein 7.3 g/dL (6.4-8.2); Triglycerides 93 mg/dL (<=150); VLDL CHOLESTEROL 18.6 mg/dL
== END 2024-12-18 12:26 | disposition home or self-care (01) ==
LOC: LAB 12:28
PROVIDERS: PCP Family Medicine; Visit Provider Family Medicine
DX: Z79.899 Other long term (current) drug therapy (principal); E78.5 Hyperlipidemia, unspecified; E66.811 Obesity, class 1; E66.09 Other obesity due to excess calories; Z68.33 Body mass index [BMI] 33.0-33.9, adult
CPT/HCPCS: 36415; 80048; 80061; 80076; 84443; 85025

== ENCOUNTER 2025-01-09 09:28 | Outpatient (OUT) | payer MEDICARE, SELFPAY ==
--- OUTSIDE RECORDS SUMMARY | 2025-01-09 09:40 | XMS_ITS | CCD ---
Author Organization [facility] Care Team Providers Care Teacher Adventure Education Name Role Phone Unavailable Primary Care Provider [...] Unavailable DO Prem Carrizales Primary Care Provider MD Raffaele Fernandez II Attending Provider Raffaele Fernandez II Unavailable [phone] Raffaele Fernandez II Admitting UnavailRaffaele Cedillo II Attending UnavailPrem Chairez Primary Care Unavailable Dominguez Leal MD Primary Care Provider [phone] Dominguez Leal MD Unavailable DOMINGUEZ LEAL Attending Unavailable DOMINGUEZ LEAL Attending Unavailable KENNA HERNANDEZ Attending Unavailable KENNA HERNANDEZ Referring Unavailable KENNA HERNANDEZ Referring Unavailable Medications Current Medications Medication Drug Class(es) Dates Sig (Normalized) Sig (Original) acetaminophen 325 mg / HYDROcodone bitartrate 5 mg oral tablet (1 source) Opioid Agonist take 1 tablet by mouth every six hours HYDROcodone-Acetam inophen 5-325 MG 1 tablet as needed Orally every 6 hrs Active [id number] 200 actuat albuterol 0.09 mg/actuat metered dose inhaler (6 sources) beta2-Adrenergic Agonist Start: 11-25-2024 take 2 [...] Date Documented Da te Episodic/Chronic Cardiac dysrhythmias (11 sources) Palpitations; Translations: [Palpitations] Onset: 11-28-2023 11-28-2023 Episodic Disorders of lipid metabolism (9 sources) Dyslipidemia; Translations: [Hyperlipidemia, unspecified] Onset: 11-28-2023 11-28-2023 Chronic Osteoarthritis (20 sources) Unilateral primary osteoarthritis, left knee; Translations: [Osteoarthritis of left knee joint] Onset: 01-31-2023 Chronic Other aftercare (9 sources) Long-term current use of drug therapy; Translations: [Other intermediate project manager (current) drug therapy] Onset: 11-28-2023 11-28-2023 Episodic Other gastrointestinal disorders (7 sources) Irritable bowel syndrome with diarrhea; Translations: [Irritable bowel syndrome with diarrhea] Onset: 11-28-2023 11-28-2023 Chronic Other non-traumatic joint disorders (5 sources) Pain in left knee; Translations: [PAIN IN LEFT KNEE] Onset: 01-30-2023 Episodic Other nutritional; endocrine; and metabolic disorders (4 sources) Body mass index 30+ - obesity; Translations: [Obesity, unspecified] Onset: 11-28-2023 11-28-2023 Chronic Other nutritional; endocrine; and metabolic disorders (5 sources) Obesity caused by energy imbalance; Translations: [Class 1 obesity due to excess calories without serious comorbidity with body mass index (BMI) of 33.0 to 33.9 in adult] Onset: 11-28-2023 12-18-2024 Chronic Spondylosis; intervertebral disc disorders; other back problems (7 sources) Degeneration of cervical intervertebral disc; Translations: [...] Date Documented Da te Episodic/Chronic Acute bronchitis (8 sources) Acute infective bronchitis; Translations: [Acute bronchitis due to other specified organisms] Onset: 11-25-2024 Resolved: 12-18-2024 11-25-2024 Episodic Mood disorders (7 sources) Mood disorders Onset: 11-28-2023 Resolved: 12-18-2024 11-28-2023 Other skin disorders (7 sources) Vitiligo; Translations: [Vitiligo] Onset: 11-28-2023 11-28-2023 Episodic Results Test Name Value Interpretation Reference Range Facility ALL CBC WITH AUTO DIFFon BASOPHILS ABSOLUTE AUTO 0 [facility] Basophils/100 WBC (Bld) 0.4 % 0.2 - 2.0 % [facility] Eosinophils/100 WBC (Bld) 1.1 % 0.9 - 7.0 % [facility] Erythrocyte distribution width (RBC) [Ratio] 13.2 % 11.0 - 15.0 % [facility] Hematocrit (Bld) [Volume fraction] 36.9 % 36.0 - 48.0 % [facility] Hemoglobin (Bld) [Mass/Vol] 11.9 g/dL Low 12.0 - 16.0 g/dL [facility] IMMATURE GRANULOCYTES ABS AUTO 0.02 [facility] Immature granulocytes/100 WBC (Bld) 0.3 % 0.0 - 0.5 % [facility] Interpretation and review of laboratory results Abnormal [facility] re LYMPHOCYTES ABSOLUTE AUTO 1.6 [facility] Lymphocytes/100 WBC (Bld) 21.3 % 20.5 - 60.0 % [facility] MCH (RBC) [Entitic mass] 31 pg 26.7 - 34.0 pg [facility] MCHC (RBC) [Mass/Vol] 32.2 g/dL 29.9 - 35.2 g/dL [facility] MCV (RBC) [Entitic vol] 96.1 fL 81.0 - 99.0 fL [facility] MONOCYTES ABSOLUTE AUTO 0.5 [facility] Monocytes/100 WBC (Bld) 6.6 % 1.7 - 12.0 % [facility] NEUTROPHILS ABSOLUTE AUTO 5.3 [facility] Neutrophils/100 WBC (Bld) 70.3 % 43.0 - 75.0 % [facility] Platelet mean volume (Bld) [Entitic vol] 9.1 fL Low 9.5 - 13.5 fL [facility] EO # 0.1 [facility] PLT 245 [facility] RBC 3.84 Low [facility] WBC 7.5 [facility] BI MAMMOGRAM SCREENING TOMOS YNTHESIS BILATERALon 01-23-2024 BI MAMMOGRAM SCREENING TOMOSYNTHESIS BILATERAL [...] VERY IMPORTANT TO YOUR HEALTH. THE CURRENT [employer]WORK GUIDELINES RECOMMENDS ANNUAL MAMMOGRAPHY BEGINNING AT AGE 40. THIS FACILITY UTILIZES A REMINDER SYSTEM TO ENSURE ALL PATIENTS RECEIVE REMINDER NOTIFICATIONS AT THE APPROPRIATE TIME BASED ON THE RECOMMENDATIONS OF THIS EXAM. ELECTRONICALLY SIGNED BY: Alexandro Coker MD Normal Not Available XR knee LT 4V*on 02-16-2023 XR knee LT 4V* [facility] Main [place] [address] [place] [address] XRay Report Signed Patient: Joslyn Jurado MR#: [id number] 0 : 1955 Acct:[id number] Age/Sex: 67 / F ADM Date: 02/16/23 Loc: [facility] Room: Type: [facility] Attending Dr: Raffaele Fernandez II, MD Copies to: Raffaele Fernandez MD Ordering Provider: Raffaele Fernandez MD Date of Service: 02/16/23 XR/XR knee LT 4V*: Acute pain of left knee ([id number]) XR/XR pelvis 1-2V: Acute pain of left [...] PROCESS. Impression dictated by: Colby Jimenez Jr., DCandido02/16/2023 2:47 PM Dictation Location: [place] [address] Transcribed By: [facility] 02/16/23 1447 Dictated By: Colby Jimenez Jr, DO 02/16/23 1445 Signed By: 02/16/[address] [facility] [address] [facility] XR knee LT 4V* [facility] Other XR knee LT 4V* [facility] Other XR knee LT 4V* [address] [place] [address] [employer] Other XR knee LT 4V* [place] [address] [facility] [employer] Other XR knee LT 4V* XRay Report [employer] Other XR knee LT 4V* Signed [employer] Other XR knee LT 4V* Patient: Joslyn Jurado MR#: [id number] [facility] Other XR knee LT 4V* 0 [employer] Other XR knee LT 4V* : 1955 Acct:[id number] [employer] Other XR knee LT 4V* Age/Sex: 67 / F ADM Date: 02/16/23 [employer] Other XR knee LT 4V* Loc: [facility] Room: Type: REG CLI [employer] Other XR knee LT 4V* Attending Dr: Raffaele Fernandez II, MD [employer] Other XR knee LT 4V* Copies to: Raffaele Fernandez MD [employer] Other XR knee LT 4V* Ordering Provider: Raffaele Fernandez MD [employer] Other XR knee LT 4V* Date of Service: 02/16/23 [employer] Other XR knee LT 4V* XR/XR knee LT 4V*: Acute pain of left knee [employer] Other XR knee LT 4V* ([id number]) XR/XR pelvis 1-2V: Acute pain of left knee [employer] Other XR knee LT 4V* AP PELVIS: Left knee 4 views [employer] Other XR knee LT 4V* CLINICAL HISTORY: Chronic left knee pain for years. [employer] Other XR knee LT 4V* COMPARISON: None [place] Other XR knee LT 4V* Pelvis: No acute bony process or significant degenerative change involving the hips. Mild [employer] Other XR knee LT 4V* degenerative changes SI joints. [employer] Other XR knee LT 4V* Left knee: Mild degenerative changes without acute bony process. Lateral patellofemoral joint space [employer] Other XR knee LT 4V* narrowing. [employer] Other XR knee LT 4V* XR/XR pelvis 1-2V [employer] Other XR knee LT 4V* IMPRESSION: [employer] Other XR knee LT 4V* MILD DEGENERATIVE CHANGES OF THE LEFT KNEE WITHOUT ACUTE BONY PROCESS. [employer] Other XR knee LT 4V* Impression dictated by: Colby Jimenez Jr., D.O.02/16/2023 2:47 PM [employer] Other XR knee LT 4V* Dictation Location: [place] [address] [employer] Other XR knee LT 4V* Transcribed By: PWS 02/16/23 [facility] [employer] Other XR knee LT 4V* Dictated By: Colby Jimenez Jr, DO 02/16/23 [facility] [employer] Other XR knee LT 4V* Signed By: [employer] Other XR knee LT 4V* 02/16/23 [facility] [employer] Other Screening Mammogram, Biltravis lois 01-10-2022 Screening Mammogram, Bilateral CLINICAL HISTORY: Screening [...] VERY IMPORTANT TO YOUR HEALTH. THE CURRENT [employer] GUIDELINES RECOMMENDS ANNUAL MAMMOGRAPHY BEGINNING AT AGE 40 THIS FACILITY USES A REMINDER SYSTEM TO ENSURE ALL PATIENTS RECEIVE REMINDER NOTIFICATIONS AT THE APPROPRIATE TIME BASED ON THE RECOMMENDATIONS OF THIS EXAM. Board Certified Radiologist. Accredited by the ACR and FDA. Report reported and signed by KALYN RANDHAWA on 01/10/2022 1410 Normal [facility] Executive Marketing Assistant [id number] 12-31-2020 SARS-CoV-2 Normal [facility] Comment on above: Performed By: #### C OVID #### [address] [address] Senior Chemical Engineer: Omid Mulligan MD SARS-CoV-2 Not Detected Normal [facility] Comment on above: Result Comment: The specimen is NEGATIVE for SARS-CoV-2, the novel coronavirus associated with COVID-19. A negative result does not rule out COVID-19. This test has been authorized by the FDA under an Emergency Use Authorization (EUA) for use by authorized laboratories. Node1 SARS-CoV-2 Reagents for [employer] are designed to detect the virus that causes COVID-19 in patients with signs and symptoms of infection who are suspected of COVID-19. An individual without symptoms of COVID-19 and who is not shedding SARS-CoV-2 virus would expect to have a negative (not detected) result in this assay. Fact sheet for Healthcare Providers: https://www.fda.gov/media/033986/download Fact sheet for Patients: https://www.fda.gov/media/035155/download METHODOLOGY: RT-PCR Performed By: #### C OVID #### [facility] [address] [place] [id number] Senior Chemical Engineer: Omid Mulligan MD [id number] 12-30-2020 SARS-CoV-2 Source .NASOPHARYNGEAL SWAB Normal [facility] Comment on above: Performed By: #### C OVID #### [facility] [employer] [address] [place] [id number] Senior Chemical Engineer: Omid Mulligan MD [id number] 12-24-2020 SARS-CoV-2 Not Detected Normal [facility] Comment on above: Result Comment: The specimen is NEGATIVE for SARS-CoV-2, the novel coronavirus associated with COVID-19. A negative result does not rule out COVID-19. [employer]rick SARS-CoV-2 for use on the [employer] Test[employer]0/8800 Systems is a real-time RT-PCR test intended [...] this assay. Fact sheet for Healthcare Providers: https://www.fda.gov/media/377114/download Fact sheet for Patients: https://www.fda.gov/media/618011/download METHODOLOGY: RT-PCR Performed By: #### C OVID #### [address] [id number] Senior Chemical Engineer: Omid Mulligan MD SARS-CoV-2 [facility] Comment on above: Performed By: #### C OVID #### [facility] [employer] [address] [place] [address] [id number] Senior Chemical Engineer: Omid Mulligan MD [id number] 12-23-2020 SARS-CoV-2 Source .NASOPHARYNGEAL SWAB Normal [facility] Comment on above: Performed By: #### C OVID #### [facility] [employer] [address] [place] [id number] Senior Chemical Engineer: Omid Mulligan MD [id number] 12-07-2020 SARS-CoV-2 Not Detected Normal [facility] Comment on above: Result Comment: The specimen is NEGATIVE for SARS-CoV-2, the novel coronavirus associated with COVID-19. A negative result does not rule out COVID-19. Fredrick SARS-CoV-2 for use on the [employer] 6800/8800 Systems is a real-time RT-PCR test intended [...] this assay. Fact sheet for Healthcare Providers: https://www.fda.gov/media/527599/download Fact sheet for Patients: https://www.fda.gov/media/763642/download METHODOLOGY: RT-PCR Performed By: #### C OVID #### [address] [address] Senior Chemical Engineer: Omid Mulligan MD SARS-CoV-2 [facility] Comment on above: Performed By: #### C OVID #### [address] [address] Senior Chemical Engineer: Omid Mulligan MD SARS-CoV-2,Rapid [facility] Comment on above: Performed By: #### C OVID #### [address] [address] Senior Chemical Engineer: Omid Mulligan MD [id number] 12-05-2020 SARS-CoV-2 Source .NASOPHARYNGEAL SWAB [facility] Comment on above: Performed By: #### C OVID #### [address] [id number] Senior Chemical Engineer: Omid Mulligan MD [id number] 11-20-2020 SARS-CoV-2 Not Detected Normal [facility] Comment on above: Result Comment: The specimen is NEGATIVE for SARS-CoV-2, the novel coronavirus associated with COVID-19. A negative result does not rule out COVID-19. Fredrick SARS-CoV-2 for use on the [employer]/8800 Systems is a real-time RT-PCR test intended [...] this assay. Fact sheet for Healthcare Providers: https://www.fda.gov/media/910736/download Fact sheet for Patients: https://www.fda.gov/media/343437/download METHODOLOGY: RT-PCR Performed By: #### C OVID #### [address] [phone] Senior Chemical Engineer: Omid Mulligan MD SARS-CoV-2 [facility] Comment on above: Performed By: #### C OVID #### [facility] [address] [place] [address] [phone] Senior Chemical Engineer: Omid Mulligan MD SARS-CoV-2,Rapid Normal [facility] Comment on above: Performed By: #### C OVID #### [facility] [address] [place] [address] [id number] Senior Chemical Engineer: Omid Mulligan MD [id number] 11-19-2020 SARS-CoV-2 Source .NASOPHARYNGEAL SWAB [facility] Comment on above: Performed By: #### C OVID #### [facility] [employer] [address] [place] [address] [id number] Senior Chemical Engineer: Omid Mulligan MD [id number] 11-08-2020 SARS-CoV-2 Not Detected Normal Not Detected [facility] Comment on above: Result Comment: (NOT E) This nucleic acid amplification test was developed and its performance characteristics determined by [employer]. Nucleic acid amplification tests include PCR and [...] detected) result in this assay. Performed At: [facility] [address] [facility] [place] [id number] Ana María Najera MD Ph:[phone] Performed By: #### A COV #### [facility] [address] [place] [address] Senior Chemical Engineer: Dick German MD [id number] 10-31-2020 SARS-CoV-2 Not Detected Normal Not Detected [facility] Comment on above: Result Comment: (NOT E) This nucleic acid amplification test was developed and its performance characteristics determined by [employer]. Nucleic acid amplification tests include PCR and [...] detected) result in this assay. Performed At: [facility] [address] [facility] [place] [id number] Ana María Najera MD Ph:[phone] Performed By: #### A COV #### [facility] [address] [place] [address] Senior Chemical Engineer: Dick German MD [id number] 10-16-2020 SARS-CoV-2 Not Detected Normal Not Detected [facility] Comment on above: Result Comment: (NOT E) This nucleic acid amplification test was developed and its performance characteristics determined by [employer]. Nucleic acid amplification tests include PCR and [...] detected) result in this assay. Performed At: [facility] [address] [facility] [place] [id number] Ana María Najera MD Ph:[phone] Performed By: #### A COV #### [facility] [address] [place] [address] Senior Chemical Engineer: Dick German MD Vital Signs Date Time Vital Sign Value Performing Clinician Facility 12-18-2024 11:40-0500 Body height 157.5 cm Dominguez Leal MD Work Phone: [facility] 12-18-2024 11:40-0500 Body mass index (BMI) [Ratio] 33.65 kg/m2 Dominguez Leal MD Work Phone: [facility] 12-18-2024 11:40-0500 Body temperature 96.6 [degF] Dominguez Leal MD Work Phone: [facility] 12-18-2024 11:40-0500 Body weight 83.46 kg Dominguez Leal MD Work Phone: [facility] 12-18-2024 11:40-0500 Diastolic blood pressure 74 mm[Hg] Dominguez Leal MD Work Phone: [facility] 12-18-2024 11:40-0500 Heart rate 82 /min Dominguez Leal MD Work Phone: [facility] 12-18-2024 11:40-0500 Respiratory rate 18 /min Dominguez Leal MD Work Phone: [facility] 12-18-2024 11:40-0500 SaO2% (BldA) [Mass fraction] 93 % Dominguez Leal MD Work Phone: [facility] 12-18-2024 11:40-0500 Systolic blood pressure 146 mm[Hg] Dominguez Leal MD Work Phone: [facility] 11-25-2024 11:03-0500 Body height 157.5 cm Dominguez Leal MD Work Phone: [facility] 11-25-2024 11:03-0500 Body mass index (BMI) [Ratio] 33.65 kg/m2 Dominguez Leal MD Work Phone: [facility] 11-25-2024 11:03-0500 Body temperature 97.3 [degF] Dominguez Leal MD Work Phone: [facility] 11-25-2024 11:03-0500 Body weight 83.46 kg Dominguez Leal MD Work Phone: [facility] 11-25-2024 11:03-0500 Diastolic blood pressure 86 mm[Hg] Dominguez Leal MD Work Phone: [facility] 11-25-2024 11:03-0500 Heart rate 96 /min Dominguez Leal MD Work Phone: [facility] 11-25-2024 11:03-0500 Respiratory rate 24 /min Dominguez Leal MD Work Phone: [facility] 11-25-2024 11:03-0500 SaO2% (BldA) [Mass fraction] 87 % Dominguez Leal MD Work Phone: [facility] 11-25-2024 11:03-0500 Systolic blood pressure 180 mm[Hg] Dominguez Leal MD Work Phone: [facility] 02-16-2023 10:00-0400 Body height 160.02 cm [employer] Jim CORREA Other [employer] Other 02-16-2023 10:00-0400 Body mass index (BMI) [Ratio] 32.77 kg/m2 Raffaele Jim CORREA Other [employer] Other 02-16-2023 10:00-0400 Body weight 83.92 kg Raffaele Fernandez II Other [employer] Other Encounters Encounter Date Encounter Type Care Provider Facility Start: 12-18-2024 End: 12-18-2024 Abboo flowsheet Dominguez Leal MD Work Phone: [facility] Start: 12-18-2024 End: 12-18-2024 Bamboo flowsheet Dominguez Leal MD Work Phone: [facility] Start: 12-18-2024 End: 12-18-2024 Clinisync Result Encounter Dominguez Leal MD Work Phone: [facility] External Department Unsolicited Start: 12-18-2024 End: 12-18-2024 Patient encounter procedure Dominguez Leal MD Work Phone: [facility] Start: 12-18-2024 End: 12-18-2024 Postop follow up visit related to original px Dominguez Leal MD Work Phone: [facility] Comment on above: Encounter for Medica re annual wellness exam (Primary Dx); Dyslipidemia (CMS/HCC); Encounter for long-term (current) use of medications; Class 1 obesity due to excess calories without serious comorbidity with body mass index (BMI) of 33.0 to 33.9 in adult; Palpitations Start: 12-18-2024 End: 12-18-2024 ambulatory DOMINGUEZ LEAL Not Available Start: 11-25-2024 End: 11-25-2024 Bamboo flowsheet Dominguez Leal MD Work Phone: [facility] Start: 11-25-2024 End: 11-25-2024 Bamboo flowsheet Dominguez Leal MD Work Phone: [facility] Start: 11-25-2024 End: 11-25-2024 Office outpatient visit 15 minutes Dominguez Leal MD Work Phone: [facility] Comment on above: Acute bronchitis due to other specified organisms (Primary Dx) Start: 11-25-2024 End: 11-25-2024 ambulatory DOMINGUEZ LEAL Not Available Start: 10-31-2024 End: 10-31-2024 ambulatory [facility] Work Phone: Start: 10-31-2024 End: 10-31-2024 Patient encounter procedure [facility] Work Phone: Start: 2024 End: 2024 ambulatory [facility] Work Phone: Start: 2024 End: 2024 Patient encounter procedure [facility] Work Phone: Start: 04-23-2024 End: 04-23-2024 ambulatory [facility] Work Phone: Start: 04-23-2024 End: 04-23-2024 Patient encounter procedure [facility] Work Phone: Start: 01-23-2024 End: 01-23-2024 ambulatory [facility] Work Phone: Start: 01-23-2024 End: 01-23-2024 Patient encounter procedure [facility] Work Phone: Start: 01-23-2024 End: 01-23-2024 ambulatory KENNA HERNANDEZ Not Available Start: 11-28-2023 Patient encounter procedure Dominguez Leal MD Work Phone: [facility] Start: 10-19-2023 End: 10-19-2023 ambulatory Raffaele [employer] Other [employer] Other Start: 10-19-2023 Office outpatient vi sit 15 minutes Raffaele [facility] [employer] [facility] Start: 07-06-2023 End: 07-06-2023 ambulatory Raffaele [employer] Other [employer] Other Start: 07-06-2023 Office outpatient vi sit 25 minutes Raffaele Jim II [facility] Start: 02-16-2023 Office outpatient ne w 45 minutes Raffaele Jim II [facility] Start: 02-16-2023 End: 02-16-2023 ambulatory Raffaele M Jim II Facility:[facility] Start: 02-16-2023 End: 02-16-2023 ambulatory DO Prem Carrizales Work Phone: [facility] Work Phone: Start: 02-16-2023 End: 02-16-2023 Patient encounter procedure DO Prem Carrizales Work Phone: [facility] Start: 01-30-2023 End: 01-30-[address] ALLYSON VILLASEÑOR . Facility: Start: 12-30-2020 End: 12-31-2020 Patient encounter procedure TAJ DAVIS [facility] Start: 12-30-2020 End: 12-30-2020 Subsequent hospital visit by physician REGGIE [facility] Start: 12-23-2020 End: 12-24-2020 Patient encounter procedure TAJ DAVIS [facility] Start: 12-23-2020 End: 12-23-2020 Subsequent hospital visit by physician REGGIE [facility] Start: 12-05-2020 End: 12-06-2020 Patient encounter procedure TAJ DAVIS [facility] Start: 12-05-2020 End: 12-05-2020 Subsequent hospital visit by physician REGGIE YE [facility] Start: 11-18-2020 End: 11-19-2020 Patient encounter procedure TAJ DAVIS [facility] Start: 11-18-2020 End: 11-18-2020 Subsequent hospital visit by physician REGGIE YE [facility] DO[facility] Start: 11-05-2020 End: 11-06-2020 Patient encounter procedure TAJ DAVIS [facility] Start: 11-05-2020 End: 11-05-2020 Subsequent hospital visit by physician REGGIE YE [facility] DOCTOR Start: 10-28-2020 End: 10-29-2020 Patient encounter procedure DOVLaurel ROBLESI [facility] Start: 10-28-2020 End: 10-28-2020 Subsequent hospital visit by physician REGGIE YE [facility] DO[facility] Start: 10-15-2020 End: 10-16-2020 Patient encounter procedure DOVLaurel DAVIS [facility] Start: 10-15-2020 End: 10-15-2020 Subsequent hospital visit by physician REGGIE YE [facility] DO[facility] Procedures Date Procedure Procedure Detail Performing Clinician Start: 12-18-2024 ALL CBC WITH AUTO DIFF Dominguez Leal MD Work Phone: Start: 01-23-2024 Mammography Dominguez aguilera MD Work Phone: Start: 02-16-2023 Pelvis X-ray DO Prem Carrizales Work Phone: Start: 02-16-2023 Radiologic examinati on of knee DO Prem Cidetiennenubia Work Phone: Start: 12-27-2021 Colonoscopy Dominguez aguilera MD Work Phone: Start: 10-15-2020 COVID-19 AMBULATORY ZEENAT Kim DAVIS Plan of Treatment Date Care Activity Detail Author Start: 12-27-2031 Screening for malign ant neoplasm of colon [facility] Start: 12-23-2025 End: 12-23-2025 Patient encounter procedure 12/23/2025 11:00 AM EST [facility] [address] [place] [address] Dominguez Leal MD [address] [place] [address] [facility] Start: 01-27-2025 End: 01-27-2025 Professional / ancillary services management 01/27/2025 11:30 AM EDT Ancillary Procedure [facility] [place] [address] [place] [phone] [facility] [place] Start: 01-27-2025 End: 01-27-2025 Patient encounter procedure 01/27/2025 10:30 AM EDT Office Visit [facility] [address] [place] [address] Kenna Hernandez, DO [address] [place] [address] [facility] Start: 01-22-2025 Screening for malign ant neoplasm of breast Mammogram [facility] Start: 12-18-2024 End: 12-18-2025 Basic metabolic 1998 panel - Serum or Plasma Basic metabolic panel Lab Routine Encounter for long-term (current) use of medications Expected: 12/18/2024 (Approximate), Expires: 12/18/2025 [facility] Work Phone: Comment on above: Expected: 12/18/2024 (Approximate), Expires: 12/18/2025 Start: 12-18-2024 End: 12-18-2026 Cardiac event monitor Cardiac event monitor Cardiac Services Routine Palpitations Expected: 12/18/2024 (Approximate), Expires: 12/18/2026 [facility] Comment on above: Expected: 12/18/2024 (Approximate), Expires: 12/18/2026 Start: 12-18-2024 End: 12-18-2025 CBC W Auto Differential panel - Blood CBC and differential Lab Routine Encounter for long-term (current) use of medications Expected: 12/18/2024 (Approximate), Expires: 12/18/2025 [facility] Comment on above: Expected: 12/18/2024 (Approximate), Expires: 12/18/2025 Start: 12-18-2024 End: 12-18-2025 Hepatic function 2000 panel - Serum or Plasma Hepatic function panel Lab Routine Encounter for long-term (current) use of medications Expected: 12/18/2024 (Approximate), Expires: 12/18/2025 [facility] Comment on above: Expected: 12/18/2024 (Approximate), Expires: 12/18/2025 Start: 12-18-2024 End: 12-18-2025 Lipid 1996 panel - Serum or Plasma Lipid panel Lab Routine Dyslipidemia (CMS/HCC) Expected: 12/18/2024 (Approximate), Expires: 12/18/2025 [facility] Comment on above: Expected: 12/18/2024 (Approximate), Expires: 12/18/2025 Start: 12-18-2024 End: 12-18-2025 Thyrotropin [Units/volume] in Serum or Plasma TSH Lab Routine Class 1 obesity due to excess calories without serious comorbidity with body mass index (BMI) of 33.0 to 33.9 in adult Expected: 12/18/2024 (Approximate), Expires: 12/18/2025 [facility] Comment on above: Expected: 12/18/2024 (Approximate), Expires: 12/18/2025 Start: 12-18-2024 End: 12-18-2024 Patient encounter procedure [facility] Comment on above: Arrived Start: 12-16-2024 End: 12-16-2024 Patient encounter procedure 12/16/2024 1:15 PM EST Office Visit [facility] [address] [place] [address] Dominguez Leal MD [address] [place] [phone] [facility] Start: 11-28-2024 Medicare Annual Wellness (AWV) Medicare Annual Wellness (AWV) [facility] Start: 11-25-2024 End: 11-25-2024 Patient encounter procedure 11/25/2024 11:00 AM EST Office Visit [facility] [address] [place] [address] Dominguez Leal MD [address] [place] [phone] Arrived [facility] Comment on above: Arrived Start: 06-30-2024 Influenza vaccination Influenza Vacc ine (#1) [facility] Start: 12-13-2023 Medicare Annual Wellness (AWV) Medicare Annual Wellness (AWV) [facility] Start: 10-15-2020 Annual Wellness Visi t (AWV) Annual Wellness Visit (AWV) [place], [place] Start: 2020 Pneumococcal 65+ yea rs Vaccine (1 of 1 - PPSV23) Pneumococcal 65+ years Vaccine (1 of 1 - PPSV23) [place], [place] Start: 2020 Pneumococcal Vaccine : 65+ Years (1 of 1 - PCV) Pneumococcal Vaccine: 65+ Years (1 of 1 - PCV) [facility] Start: 06-30-2020 Influenza vaccination Flu vaccine (# 1) [place], [place] Start: 2010 Screening for osteoporosis DEXA (modify frequency per FRAX score) [place], [place] Start: 2005 Screening for malign ant neoplasm of breast Breast cancer screen [place], [place] Start: 2005 Screening for malign ant neoplasm of colon Colon cancer screen colonoscopy [place], [place] Start: 2005 Shingles Vaccine (1 of 2) Shingles Vaccine (1 of 2) [place], [place] Start: 1995 Lipid panel Lipid screen [place], [place] Start: 1976 Screening for malign ant neoplasm of cervix Cervical cancer screen [place], [place] Start: 1974 DTaP/Tdap/Td vaccine (1 - Tdap) DTaP/Tdap/Td vaccine (1 - Tdap) [place], [place] Start: 1971 COVID-19 Vaccine (1 of 2) COVID-19 Vaccine (1 of 2) [facility] [employer] [facility] Phone: Start: 1970 HIV screening HIV screen [place], [place] Start: 1955 Hepatitis C screening Hepatitis C sc reen [place], [place] Start: 1955 Screening for malign ant neoplasm of colon [facility] End: 11-18-2020 COVID-19 COVID-19 Lab Routine Once for 1 Occurrences starting 11/18/2020 until 11/18/2020 [place], [place] Comment on above: Once for 1 Occurrenc es starting 11/18/2020 until 11/18/2020 COVID-19 [place], [place] End: 12-03-2020 COVID-19 COVID-19 Lab Routine Once for 1 Occurrences starting 12/03/2020 until 12/03/2020 [place], [place] Comment on above: Once for 1 Occurrenc es starting 12/03/2020 until 12/03/2020 End: 12-23-2020 COVID-19 COVID-19 Lab Routine Once for 1 Occurrences starting 12/23/2020 until 12/23/2020 [facility] [employer] Phone: Comment on above: Once for 1 Occurrenc es starting 12/23/2020 until 12/23/2020 End: 12-30-2020 COVID-19 COVID-19 Lab Routine Once for 1 Occurrences starting 12/30/2020 until 12/30/2020 [facility] [employer] [facility] Work Phone: Comment on above: Once for 1 Occurrenc es starting 12/30/2020 until 12/30/2020 End: 10-15-2020 Covid-19 Ambulatory Covid-19 Ambulatory Lab Routine Once for 1 Occurrences starting 10/15/2020 until 10/15/2020 [facility], [place] Comment on above: Once for 1 Occurrenc es starting 10/15/2020 until 10/15/2020 [facility] [place] End: 10-28-2020 Covid-19 Ambulatory Covid-19 Ambulatory Lab Routine Once for 1 Occurrences starting 10/28/2020 until 10/28/2020 [facility] Comment on above: Once for 1 Occurrenc es starting 10/28/2020 until 10/28/2020 End: 11-05-2020 Covid-19 Ambulatory Covid-19 Ambulatory Lab Routine Once for 1 Occurrences starting 11/05/2020 until 11/05/2020 [facility] Comment on above: Once for 1 Occurrenc es starting 11/05/2020 until 11/05/2020 Immunizations Immunization Date Immunization Notes Care Provider Fa [facility] 01-16-2023 influenza virus vacc ine, unspecified formulation Dominguez Leal MD Work Phone: [facility] Healthcare Payers Date Payer Category Payer Self-pay [id number] 2021 Medicare (Managed Care) [employer] [id number] 2014 Unknown [id number] 1959 Unknown [id number] 1955 Unknown [id number] [id number]. 2.175 1955 Unknown [id number] 2.16.840.1.365150.3.579. 2.175 1955 Unknown [id number] 2.16.840.1.258361.3.579. 2.175 1955 Unknown [id number] 2.16.840.1.572705.3.579. 2.175 1955 Unknown [id number] 2.16.840.1.184414.3.579. 2.175 1955 Unknown [id number] 2.16.840.1.843749.3.579. 2.175 1955 Unknown [id number] 2.16.840.1.919539.3.579. 2.175 1955 Unknown [id number] 2.16.840.1.958705.3.579. 2.593 1955 Unknown [id number] 2.16.840.1.632478.3.579. 2.1259 1955 Unknown [id number] 2.16.840.1.612486.3.579. 2.1259 1955 Unknown [id number] 2.16.840.1.651160.3.579. 2.1259 1955 Unknown [id number] 2.16.840.1.962815.3.579. 2.1259 Unknown [place] [employer]/[place] [id number] Unknown [id number] [id number]. 2.531 Social History Date Type Detail Facility Tobacco smoking stat [facility] Unknown if ever smoked [facility], [place] Start: 1955 Sex Assigned At Not on file M [facility] [place] Start: 1955 Sex Assigned At Female F [facility] Start: 01-23-2024 End: 12-18-2024 Sex Assigned At [facility] [employer] Other Start: 01-18-2024 End: 01-18-2024 Tobacco smoking status NHIS Smoker (finding) [facility] Start: 10-31-2024 Sex Female (finding) [facility] Start: 01-22-2024 Tobacco smoking stat [facility] Ex-smoker [facility] End: 10-30-2009 History of tobacco use Cigarette Smoker [facility] Start: 01-22-2024 Tobacco use and exposure Smokeless tobacco non-user [facility] Start: 01-23-2024 End: 12-18-2024 Alcoholic beverage intake Current drinker of alcohol (finding) [facility] Start: 01-23-2024 End: 12-18-2024 History of Social function [facility] How often to you hav e a drink containing alcohol? Never [facility] How many standard drinks containing alcohol do you have on a typical day? Patient does not drink [facility] Start: 01-22-2024 Alcohol Comment Caffeine intak e: 2-3 cups per day coffee [facility] Clinical Notes 01-30-2023 to 12-18-2024 Dominguez Leal MD - 12/18/2024 12:08 PM Marycarmen Leal MD - 12/18/2024 12:08 PM Marycarmen Leal MD - 12/18/2024 11:30 AM Marycarmen Leal MD - 11/25/2024 11:33 AM EST Note Date & Type Note Facility 12-18-2024 History of Presen t illness Narrative Associated Problem(s): Palpitations Continued symptoms and likely related to stress. Check Holter. Associated Problem(s): Encounter for Medicare annual wellness exam Due for labs. Discussed proper diet and regular aerobic exercise. Need aerobic exercise 5-6 days a week for 30 minutes at a time. Smaller portions and limit total calories. Colonoscopy every 10 years. Tetanus every 10 years. Advised not to smoke. Images from the original note were not included. Subjective Patient ID: Joslyn Jurado is a 69 y.o. female who presents for Medicare Annual Wellness Visit Subsequent (wellness). Presents for medicare annual wellness visit. Patient stable today. Weight up 6 pounds in the past year. Tries to stay active around house but no regular exercise. Tries to watch diet and eat healthy. Increased fruits and vegetables. Smaller portions and limits snacking. Tries to limit total daily calories. Due for labs. Mammogram scheduled in December and colonoscopy normal in 2021. Continues to have palpitations. Feels like heart races and occasionally skips. Lasts few seconds then resolve. Not lightheaded or SOB. Notice more when stressed. Symptoms have persisted and about 2-3 times a week. Review of Systems Respiratory: Negative for cough, [...] There is no guarding or rebound. Musculoskeletal: General: No swelling or tenderness. Cervical back: Neck supple. Right lower leg: No edema. Left lower leg: No edema. Skin: Findings: No erythema or rash. Neurological: General: No focal deficit present. Mental Status: She is alert and oriented to person, place, and time. Cranial Nerves: No cranial nerve deficit. Motor: No weakness. Gait: Gait normal. Assessment/Plan Problem List Items Addressed This Visit Dyslipidemia ([facility]) Relevant Orders Lipid panel Encounter for Medicare annual wellness exam - Primary Due for labs. Discussed proper diet and regular aerobic exercise. Need aerobic exercise 5-6 days a week for 30 minutes at a time. Smaller portions and limit total calories. Colonoscopy every 10 years. Tetanus every 10 years. Advised not to smoke. Class 1 obesity due to excess calories without serious comorbidity with body mass index (BMI) of 33.0 to 33.9 in adult Relevant Orders TSH Encounter for long-term (current) use of medications Relevant Orders Basic metabolic panel CBC and differential Hepatic function panel Palpitations Continued symptoms and likely related to stress. Check Holter. Relevant Orders Cardiac event monitor documented in this encounter [facility] 11-25-2024 History of Presen t illness Narrative [...] 90 mcg/act inhaler documented in this encounter [facility] 10-19-2023 Evaluation note Encounter Date Diagnosis Assessment [...] injections, viscosupplementa tion, or radiofrequency nerve ablation. [facility] Other 09-07-2023 Evaluation note* Encounter Date Diagnosis Assessment Notes Treatment Notes Treatment Clinical Notes Jun, Primary osteoarthritis of left knee (ICD-10 - M17.12) Jun, Other 1. We had a dania g discussion with the patient today concerning their [...] physical therapy, and the consistent use of anti-inflammatories. All 3 of these options, including their [...] gel injections, or even considering nerve ablations. [facility] Other 04-20-2023 Evaluation note* Encounter Date Diagnosis Assessment Notes Treatment Notes Treatment Clinical Notes Jan, Primary osteoarthritis of left knee (ICD-10 - M17.12) Jan, Acute pain of left knee (ICD-10 - M25.562) Jan, Other 1. We had a dania g discussion with the patient today concerning their [...] physical therapy, and the consistent use of anti-inflammatories. All 3 of these options, including their [...] injection well. 6. Follow up 3 months [facility] Other 04-03-2023 NotePROCEDURE: XR KNEE LT 4V or > HISTORY: Pain in left [...] changes of the anterior compartment with possible [id number] contact between the patella and femur (but this may be due to projection). Consider MRI for further evaluation. Electronically authenticated by: ALEXANDRO DAI Date: 2023-01-30 10:34[facility] noteNo [facility] information available[facility] Work Phone: Evaluation note* Diagnosis Onset Date Resolution Status Primary osteoarthritis of left knee acute [facility] Work Phone: Evaluation note* Diagnosis Onset Date Resolution Status Admit Date Primary osteoarthritis of le ft knee acute October 31 1:29pm [facility] Work Phone: Evaluation note* Diagnosis Encounter for Medicare annual wellness exam- Primary Dyslipidemia (CMS/HCC) Other and unspecified hyperlipidemia Obesity (BMI 30-39.9) Encounter for long-term (current) use of medications Encounter for long-term (current) use of other medications Palpitations Acute bronchitis due to other specified organisms- Primary [facility] in this encounter [facility] Diagnosis Encounter for Medicare annual wellness exam- Primary Dyslipidemia (CMS/HCC) Other and unspecified hyperlipidemia Obesity (BMI 30-39.9) Encounter for long-term (current) use of medications Encounter for long-term (current) use of other medications Palpitations Encounter for Medicare annual wellness exam- Primary Dyslipidemia (CMS/HCC) Other and unspecified hyperlipidemia Encounter for long-term (current) use of medications Encounter for long-term (current) use of other medications Class 1 obesity due to excess calories without serious comorbidity with body mass index (BMI) of 33.0 to 33.9 in adult Palpitations documented in this encounter [facility] - Reported* Type Description Date Surgical History foot right bunion removed Surgical History tubular Hospitalization History tubular preg. [facility] Other Summary Purpose Family History No Family [...] for Visit Chief Complaint 3 MO PER [facility] Reason for Visit Primary osteoarthrit is of [...] section and content) DATE CREATED AUTHOR 12/31/2020 [facility] DATE CREATED AUTHOR AUTHOR'S ORGANIZ ATION 01/11/2022 [facility] dical Specialist DATE CREATED AUTHOR AUTHOR'S ORGANIZ ATION 02/02/[address] [facility] pital DATE CREATED AUTHOR AUTHOR'S ORGANIZ ATION 04/22/2023 [facility] DATE CREATED AUTHOR AUTHOR'S ORGANIZ ATION 12/20/2024 [facility] dical Specialists EPIC Care Teams (unrecognized sec [...] January 23, 2024 End: January 23, 2024 GABRIEL Hernandez Attending Provider Active Start: January 23, 2024 [...] Care Provider Active Start: 2024 End: 2024 Flower Edgar , HIMANSHU-C Attending Provider Active Start: 2024 End: 2024 Team Status: Inactive Member Role Status Dates Prem Carrizales DO Primary Care Provider Active Start: October 31, 2024 End: October 31, 2024 Raffaele Fernandez II, MD Attending Provider Active Start: October 31, 2024 End: October 31, 2024 [employer] Relationship Specialty Start Date End Date Dominguez Leal MD [address] [place] [phone] PCP - General Family Medicine 11/28/23 Dominguez Leal MD [address] [place] [phone] PCP - [facility] 06/30/24 [employer] Relationship Specialty Start Date End Date Dominguez Leal MD [address] [place] [phone] PCP - General Family Medicine 11/28/23 Dominguez Leal MD [address] [place] [phone] PCP - [facility] 06/30/24 [employer] Relationship Specialty Start Date End Date Dominguez Leal MD [address] [place] [phone] PCP - General Family Medicine 11/28/23 [employer] Relationship Specialty Start Date End Date Dominguez Leal MD [address] [place] [phone] PCP - General Family Medicine 11/28/23 [employer] Relationship Specialty Start Date End Date Dominguez Leal MD [address] [place] [address] PCP - General Family Medicine 11/28/23 Goals (unrecognized section and content) Goals may [...] for a week Cough Shortness of Breath Reason Comments Medicare Annual Wellness Visit Subsequen t wellness FOR RECORDS PERTAINING TO PATIENTS WHO ARE [...] BE BASED ON THE PRIMARY CLINICAL RECORDS. [employer] provides no warranty or guarantee of the accuracy or completeness of information in this document.
== END 2025-01-09 09:29 | disposition home or self-care (01) ==
LOC: CARD 09:29
PROVIDERS: PCP Family Medicine; Visit Provider Family Medicine
DX: R00.2 Palpitations (principal)
CPT/HCPCS: 93242

== ENCOUNTER 2025-05-07 09:40 | Emergency (ER) | payer MEDICARE, SELFPAY ==
[2025-05-07 09:45] VITALS: PULSE 77; TEMP 36.9; O2SAT 96; BMI 34.8
--- OUTSIDE RECORDS SUMMARY | 2025-05-07 09:47 | XMS_ITS | Encounter Summary ---
Author Organization [facility] Address [address] [place] [address] Care Team Providers Care Supervisor [employer] Name Role Phone Dominguez Whyte MD Primary Care Provider [phone] Dominguez Whyte MD Unavailable Encounter Details Date Type Department Care Team (Late Contact Info) Description 09/19/2024 [facility] [phone] Sina Lee DO Social History Tobacco Use Types Packs/Day Years Used Date Smoking Tobacco: Former Cigarettes Q uit: 10/30/2009 Smokeless Tobacco: Never Alcohol Use Standard Drinks/Week Comments Yes 0 (1 standard drink = 0.6 oz pure alcohol) Caffeine intake: 2-3 cups per day coffee [facility]C Answer Date Recorded Q1: How often do you have a drink containing alcohol? Never 01/23/2024 Q2: How many drinks containi ng alcohol do you have on a typical day when you are drinking? Patient does not drink Q3: How often do you have si x or more drinks on one occasion? Never 01/23/2024 PHQ-2 Answer Date Recorded Patient Health Questionnaire-2 Score 0 01/23/2024 Comments No Sex and Gender Information Value Date Recorded Sex Assigned at Not on file Legal Sex Female 6:45 PM EDT Gender Identity Not on file Sexual Orientation Not on file documented as of this encounter Plan of Treatment Upcoming Encounters Date Type Department Care Team (Late Contact Info) Description 12/23/2025 11:00 AM EST Office Visit [facility] [address] [place] [place] [phone] Dominguez Whyte MD [address] [place] [phone] 01/30/2026 9:30 AM EDT Office Visit [facility] [address] [place] [address] Javad Larsen DO [address] [place] [address] 01/30/2026 10:30 AM EDT Ancillary Procedure [facility] [place] [address] [place] [address] documented as of this encounter Procedures Procedure Name Priority Date/Time Associated Diagnosis Comments COLONOSCOPY Routine 12/27/2021 9:02 PM EST documented in this encounter Results * Colonoscopy (12/27/2021 9:02 PM EST) Anatomical Region Laterality Modality Endoscopy Dominguez Whyte MD ENDOSCOPY PROCEDURE ORDERABLES F inal Result documented in this encounter Visit Diagnoses Not on filedocumented in this encounter Additional Health Concerns Assessment Noted Time PHQ-9 Depression Total Score: 0 11/28/19 24 11:00 AM EST documented as of this encounter Care Teams Supervisor [employer] Relationship Specialty Start Date End Date Dominguez Whyte MD [address] [place] [phone] PCP - General Family Medicine 11/28/23 Dominguez Whyte MD [address] [place] [phone] PCP - [facility] 06/30/24 documented as of this encounter
--- OUTSIDE RECORDS SUMMARY | 2025-05-07 09:47 | XMS_ITS | Clinical Summary ---
Author Organization [facility] Address [address] [place] [address] Care Team Providers Care Slip Injector And Applicator Name Role Phone Dominguez Whyte MD Primary Care Provider [phone] Dominguez Whyte MD Unavailable Allergies No known active allergies Medications Psyllium (METAMUCIL PO) Take by mouth A ctive Multiple Vitamin (MULTIVITAMIN PO) Take by mouth Active triamcinolone (Kenalog) 0.1 % creamIndication s:Chronic vulvitis Apply topically 2 (two) times a day 80 g 1 5 Active Active Problems Problem Noted Date Diagnosed Date Osteoarthritis of both knees 11/28/2023 Dyslipidemia 11/28/2023 Irritable bowel syndrome with diarrhea 4 Vitiligo 11/28/2023 DDD (degenerative disc disease), cervical 2023 Class 1 obesity due to exces s calories without serious comorbidity with body mass index (BMI) of 33.0 to 33.9 in adult 11/28/2023 Palpitations 11/28/2023 Assessment & Plan (12/18/2024 12:08 PM EST): Continued symptoms and likely related to stress. Check Holter. Assessment & Plan (11/28/2023 11:39 AM EST): Occasional symptoms and likely related to stress. Discussed ordering Holter monitor but patient wants to wait and monitor. Resolved Problems Problem Noted Date Diagnosed Date Resolved Date Acute bronchitis due to othe r specified organisms 11/25/2024 12/18/2024 Assessment & Plan (11/25/2024 11:33 AM EST): Take antibiotics for 7 days. Use prednisone [...] if no better or worse call for re- evaluation. Encounter for Medicare annual wellness exam 11/28/2023 01/27/2025 Assessment & Plan (12/18/2024 12:08 PM EST): Due for labs. Discussed proper diet and regular aerobic exercise. Need aerobic exercise 5-6 days a week for 30 minutes at a time. Smaller portions and limit total calories. Colonoscopy every 10 years. Tetanus every 10 years. Advised not to smoke. Assessment & Plan (11/28/2023 11:38 AM EST): Due for labs. Discussed proper diet and regular aerobic exercise. Need aerobic exercise 5-6 days a week for 30 minutes at a time. Smaller portions and limit total calories. Colonoscopy every 10 years. Tetanus every 10 years. Advised not to smoke. Discussed daily Aspirin therapy. Encounter for long-term (cur rent) use of medications 11/28/2023 01/27/2025 Encounters Date Type Department Care Team Description 02/21/2025 Results Follow-Up [facility] [address] [place] [address] Dominguez Whyte MD 02/21/2025 Orders Only [facility] [address] [place] [address] Dominguez Whyte MD from Last 3 Months Family History Medical History Relation Name Comments Diabetes Brother Heart disease Brother Diabetes Mother Heart disease Mother Ovarian cancer Niece Cancer Sister Heart disease Sister Relation Name Status Comments Brother 2 Father Mother Niece Sister 3 Son Alive 3 Social History Tobacco Use Types Packs/Day Years Used Date Smoking Tobacco: Former Cigarettes Q uit: 10/30/2009 Smokeless Tobacco: Never Tobacco Cessation:Ready to Q uit: Not Asked; Counseling Given: Not Answered Alcohol Use Standard Drinks/Week Comments Yes 0 (1 standard drink = 0.6 oz pure alcohol) Caffeine intake: 2-3 cups per day coffee AUDIT-C Answer Date Recorded Q1: How often do you have a drink containing alcohol? Never 01/27/2025 Q2: How many drinks containi ng alcohol do you have on a typical day when you are drinking? Patient does not drink Q3: How often do you have si x or more drinks on one occasion? Never 01/27/2025 PHQ-2 Answer Date Recorded Patient Health Questionnaire-2 Score 0 01/27/2025 Comments No Sex and Gender Information Value Date Recorded Sex Assigned at Not on file Legal Sex Female 6:45 PM EDT Gender Identity Not on file Sexual Orientation Not on file Last Filed Vital Signs Vital Sign Reading Time Taken Comments Blood Pressure 154/84 01/27/2025 10:22 AM EDT Pulse 82 12/18/2024 11:40 AM EST Temperature 35.9 C (96.6 F) 12/18/2024 11:40 AM EST Respiratory Rate 18 12/18/2024 11:40 AM EST Oxygen Saturation 93% 12/18/2024 11:40 AM EST Inhaled Oxygen Concentration - - Weight 84.8 kg (187 lb) 01/27/2025 10:22 AM EDT Height 157.5 cm (5' 2 ) 01/27/2025 10:22 AM EDT Body Mass Index 34.2 01/27/2025 10:22 AM EDT Plan of Treatment Upcoming Encounters Date Type Department Care Team (Late st Contact Info) Description 12/23/2025 11:00 AM EST Office Visit [facility] [address] [place] [address] Dominguez Whyte MD [address] [place] [address] 01/30/2026 9:30 AM EDT Office Visit [facility] [address] [place] [address] Javad Larsen, [address] [place] [address] 01/30/2026 10:30 AM EDT Ancillary Procedure [facility] [place] [address] [place] [phone] Health Maintenance Due Date Last Done Comments CT Colonography 1955 FIT-DNA 1955 FIT 1955 FOBT 1955 Sigmoidoscopy 1955 Pneumococcal Vaccine: 65+ Ye ars (1 of 1 - PCV) 2005 Influenza Vaccine (#1) 2025 , 08/30/2019, 08/30/2015 Medicare Annual Wellness (AWV) 12/18/2025 12/18/2024 , 12/13/2022 Mammogram 01/27/2026 01/27/2025, 12/29, 01/16/2023, Additional history exists Colonoscopy 12/27/2031 12/27/2021, 12/01, 12/27/2021, Additional history exists Colorectal Cancer Screening 12/27/2031 Procedures Procedure Name Priority Date/Time Associated Diagnosis Comments CARD HOLTER MONITOR RECORDING Routine 02/21/2025 11:13 AM EDT CARD HOLTER MONITOR RECORDING Routine 02/21/2025 10:34 AM EDT BI MAMMOGRAM SCREENING TOMOSYNTHESIS BILATERAL Routine 01/27/2025 11:27 AM EDT Encounter for screening mammogram for malignant neoplasm of breast COLONOSCOPY Routine 12/27/2021 9:02 PM EST from Last 3 Months or Most Recently Relevant to Health Maintenance Results * CARD HOLTER MONITOR RECORDING (02/21/2025 11:13 AM EDT) Only the most recent of2 resultswithin the time period is included. Anatomical Region Laterality Modality Radiographic Judy ging Dominguez Whyte MD IMG XR PROCEDURES Final Result * Bilateral screening mammogram with tomosynthesis (01/27/2025 11:27 AM EDT) Anatomical Region Laterality Modality Breast Bilateral Mammography 01/27/2025 1:41 PM EDT Impressions 01/27/2025 1:50 PM EDT Impression: No specific evidence of malignancy seen in either breast. BIRADS 2 - Benign Findings DENSITY: There are scattered areas of fibroglandular density. FOLLOW-UP: Routine Screening Mammogram ELECTRONICALLY SIGNED BY: Aaron Quiroz M.D. Narrative 01/27/2025 1:50 PM EDT Examination: BI MAMMOGRAM SCREENING TOMOSYNTHESIS BILATERAL Clinical History: yearly Technique: Screening digital mammography study of both breasts was performed with 2-D and 3-D tomosynthesis imaging. Study was compared to the prior screening mammogram study dated 01/16/2023, left breast ultrasound study dated 01/23/2023 and screening mammogram study of the breasts dated 01/23/2024. Findings: There is no evidence of interval dominant spiculated mass, grouped microcalcifications, or skin thickening which would be suggestive of malignancy. Asymmetric density in the left breast appears slightly decreased in size compared to the prior mammogram studies, this was noted to represent a cyst on the ultrasound exam from 01/23/2023. A few other small benign-appearing asymmetric densities on the left similar to the prior mammogram studies. A few benign-appearing calcifications are noted bilaterally. Axillary lymph nodes are noted bilaterally which appear grossly unremarkable. Procedure Note Aaron Quiroz MD - 01/27/2025 Examination: BI MAMMOGRAM SCREENING TOMOSYNTHESIS BILATERAL Clinical History: yearly Technique: Screening digital mammography study of both breasts wasperformed with 2-D and 3-D tomosynthesis imaging. Study was compared tothe prior screening mammogram study dated 01/16/2023, left breastultrasound study dated 01/23/2023 and screening mammogram study of thebreasts dated 01/23/2024. Findings: There is no evidence of interval dominant spiculated mass,grouped microcalcifications, or skin thickening which would be suggestiveof malignancy. Asymmetric density in the left breast appears slightly decreased in sizecompared to the prior mammogram studies, this was noted to represent acyst on the ultrasound exam from 01/23/2023. A few other smallbenign-appearing asymmetric densities on the left similar to the priormammogram studies. A few benign-appearing calcifications are notedbilaterally. Axillary lymph nodes are noted bilaterally which appeargrossly unremarkable. IMPRESSION: Impression: No specific evidence of malignancy seen in either breast. BIRADS 2 - Benign Findings DENSITY: There are scattered areas of fibroglandular density. FOLLOW-UP: Routine Screening Mammogram ELECTRONICALLY SIGNED BY: Aaron Quiroz M.D. Javad Larsen DO IMG BI PROCEDURES Final Resu lt * Colonoscopy (12/27/2021 9:02 PM EST) Anatomical Region Laterality Modality Endoscopy Dominguez Whyte MD ENDOSCOPY PROCEDURE ORDERABLES F inal Result from Last 3 Months or Most Recently Relevant to Health Maintenance Insurance [employer] Care Teams Slip Injector And Applicator Relationship Specialty Start Date End Date Dominguez Whyte MD [address] [place] [address] PCP - General Family Medicine 11/28/23 Dominguez Whyte MD [address] [place] [address] [phone] (FaxMeena Arnold MA 06/30/24
--- OUTSIDE RECORDS SUMMARY | 2025-05-07 09:47 | XMS_ITS | Clinical Summary ---
Author Organization [employer] [facility] tem Address [id number] [place] [address] Care Team Providers Care Oracle Iam Consultant Name Role Phone Dominguez Whyte MD Primary Care Provider [phone] Allergies No known active allergies Medications nfthzfrf-hjua-UK -calcium &mins (THERAGRAN-M) 9 mg iron-400 mcg tablet Take 1 tablet by mouth daily. Active psyllium husk (MetamuciL) 0.4 gram capsule Take by mouth. Active Active Problems No known active problems Family History Medical History Relation Name Comments Heart disease Brother 1 Other Brother 2 enlarged heart Heart disease Maternal Grandmother Diabetes Mother Ovarian cancer Niece Breast cancer Sister 1 Hypertension Sister 2 Relation Name Status Comments Brother 1 Brother 2 Maternal Grandmother Mother Niece Sister 1 Sister 2 Social History Tobacco Use Types Packs/Day Years Used Date Smoking Tobacco: Some Days Cigarettes Smokeless Tobacco: Never Alcohol Use Standard Drinks/Week Comments Yes 0 (1 standard drink = 0.6 oz pur e alcohol) ocassionally Childcare Answer Date Recorded Childcare Unknown 04/10/2019 Employment Answer Date Recorded Employment Unknown 04/10/2019 Comments No Sex and Gender Information Value Date Recorded Sex Assigned at Not on file Legal Sex Female 11:53 AM EDT Gender Identity Not on file Sexual Orientation Not on file Last Filed Vital Signs Vital Sign Reading Time Taken Comments Blood Pressure 188/77 12/27/2021 11:52 AM EST Pulse 66 12/27/2021 11:52 AM EST Temperature 35.8 C (96.5 F) 12/27/2021 9:27 AM EST Respiratory Rate 21 12/27/2021 11:52 AM EST Oxygen Saturation 93% 12/27/2021 11:52 AM EST Inhaled Oxygen Concentration - - Weight 86.2 kg (190 lb) 12/27/2021 9:27 AM EST Height 160 cm (5' 3 ) 12/27/2021 9:27 AM EST Body Mass Index 33.66 12/27/2021 9:27 AM EST Plan of Treatment Health Maintenance Due Date Last Done Comments Depression Screening 1967 Tobacco Screening 1967 Adult BMI Screening 1973 DTaP,Tdap and Td Vaccines (1 - Tdap) 1974 Zoster (Shingles) Vaccine (1 of 2) 2005 Fall Risk Screening 2020 COVID-19 Vaccine (2023-2 5 season) 2024 11/12/2021, 12/03/2020, 11/05/2020 Influenza Vaccine 06/30/2025 08/30/2019, 08/30/2015 Colonoscopy 12/27/2026 12/27/2021, 12/27/2021 Medical Devices Not on file Procedures Procedure Name Priority Date/Time Associated Diagnosis Comments PROVATION COLONOSCOPY Routine 12/27/2021 9:18 AM EST from Last 3 Months or Most Recently Relevant to Health Maintenance Results * Colonoscopy Report (12/27/2021 9:18 AM EST) Narrative SYSTEMGENERATED, DOCUMENTATION - 12/27/2021 9:18 AM EST This order has been auto-finalized for image and report archival in PACs. *For full report details, please reach out to your physician. Effective 03/16/21 this image will be visible to you in [facility].* us Dick Mandujano DO IMG OR IMG ORDERABLES Final Result from Last 3 Months or Most Recently Relevant to Health Maintenance Insurance [employer] Care Teams Oracle Iam Consultant Relationship Specialty Start Date End Date Dominguez Whyte MD PCP - General Family Medicine 12/20/21
--- OUTSIDE RECORDS SUMMARY | 2025-05-07 09:47 | XMS_ITS | Encounter Summary ---
Author Organization [facility] Address [address] [facility] [place] [address] Care Team Providers Care Pick And Shovel Worker Name Role Phone Dominguez Whyte MD Primary Care Provider [phone] Dominguez Whyte MD Unavailable Encounter Details Date Type Department Care Team (Late Contact Info) Description 02/21/2025 [facility] Only [facility] [address] [place] [phone] Dominguez Whyte MD [address] [place] [address] Social History Tobacco Use Types Packs/Day Years [...] 12/23/2025 11:00 AM EST Office Visit [facility] [address] [place] [phone] Dominguez Whyte MD [address] [place] [address] 01/30/2026 9:30 AM EDT Office Visit [facility] [address] [place] [address] Javad Larsen, DO [address] [place] [address] 01/30/2026 10:30 AM EDT Ancillary Procedure [facility] [place] [address] [place] [address] documented as of this encounter Procedures Procedure Name Priority Date/Time Associated Diagnosis Comments CARD HOLTER MONITOR RECORDING Routine 02/21/2025 11:13 AM EDT CARD HOLTER MONITOR RECORDING Routine 02/21/2025 10:34 AM EDT documented in this encounter Results * CARD HOLTER MONITOR RECORDING (02/21/2025 11:13 AM EDT) Anatomical Region Laterality Modality Radiographic Judy ging us Dominguez Whyte MD IMG XR PROCEDURES Final Result * CARD HOLTER MONITOR RECORDING (02/21/2025 10:34 AM EDT) Anatomical Region Laterality Modality Radiographic Judy ging us Dominguez Whyte MD IMG XR PROCEDURES Final Result documented in this encounter Visit Diagnoses Not on filedocumented in this encounter Additional Health Concerns Assessment Noted Time PHQ-9 Depression Total Score: 0 12/18/19 11:00 AM EST documented as of this encounter Care Teams Pick And Shovel Worker Relationship Specialty Start Date End Date Dominguez Whyte MD [address] [place] [address] PCP - General Family Medicine 11/28/23 Dominguez Whyte MD [address] [place] [address] PCP - [facility] 06/30/24 documented as of this encounter
--- OUTSIDE RECORDS SUMMARY | 2025-05-07 09:47 | XMS_ITS | Encounter Summary ---
Author Organization [facility] Address [address] [place] [facility] [address] Care Team Providers Care Calendering Supervisor Name Role Phone Dominguez Whyte MD Primary Care Provider [phone] Dominguez Whyte MD Unavailable Encounter Details Date Type Department Care Team (Late Contact Info) Description 02/21/2025 Results Follow-Up [facility] [address] [place] [address] Dominguez Whyte MD [address] [place] [address] Social History Tobacco Use Types Packs/Day Years [...] [facility] [address] [place] [phone] Dominguez Whyte MD [address] [place] [address] 01/30/2026 9:30 AM EDT Office Visit [facility] [address] [place] [address] Javad Larsen, DO [address] [place] [address] 01/30/2026 10:30 AM EDT Ancillary Procedure [facility] [place] [address] [place] [address] documented as of this encounter Visit Diagnoses Not on filedocumented in this encounter Additional Health Concerns Assessment Noted Time PHQ-9 Depression Total Score: 0 12/18/19 25 11:00 AM EST documented as of this encounter Care Teams Calendering Supervisor Relationship Specialty Start Date End Date Dominguez Whyte MD [address] [place] [phone] PCP - General Family Medicine 11/28/23 Dominguez Whyte MD [address] [place] [address] PCP - [facility] 06/30/24 documented as of this encounter
--- OUTSIDE RECORDS SUMMARY | 2025-05-07 09:47 | XMS_ITS | Encounter Summary ---
Author Organization [facility] Address [address] [facility] [place] [address] Care Team Providers Care Wet Cotton Feeder Name Role Phone Dominguez Whyte MD Primary Care Provider [phone] Dominguez Whyte MD Unavailable Encounter Details Date Type Department Care Team (Late Contact Info) Description 04/24/2024 Abstract [facility] [address] [place] [phone] Prem Carrizales, DO [address] [facility] [address] [place] [address] Social History Tobacco Use Types Packs/Day Years [...] [facility] [address] [place] [phone] Dominguez Whyte MD [address] [place] [address] 01/30/2026 9:30 AM EDT Office Visit [facility] [address] [place] [address] Javad Larsen, [address] [place] [address] 01/30/2026 10:30 AM EDT Ancillary Procedure [facility] [place] [address] [place] [address] documented as of this encounter Visit Diagnoses Not on filedocumented in this encounter Additional Health Concerns Assessment Noted Time PHQ-9 Depression Total Score: 0 11/28/19 11:00 AM EST documented as of this encounter Care Teams Wet Cotton Feeder Relationship Specialty Start Date End Date Dominguez Whyte MD [address] [place] [address] PCP - General Family Medicine 11/28/23 Dominguez Whyte MD [address] [place] [address] PCP - [facility] 06/30/24 documented as of this encounter
--- OUTSIDE RECORDS SUMMARY | 2025-05-07 09:47 | XMS_ITS | Clinical Summary ---
Author Organization [facility] [employer] [facility] Address [address] [place] [address] Care Team Providers Care Missile Mechanic Name Role Phone Unavailable Primary Care Provider Unavailabl e Social History Tobacco Use Types Packs/Day Years Used Date Smoking Tobacco: Never Assessed Comments Unknown Sex and Gender Information Value Date Recorded Sex Assigned at Not on file Legal Sex Female 1:49 PM EST Gender Identity Not on file Sexual Orientation Not on file Plan of Treatment Not on file Insurance [employer]
--- NOTE | 2025-05-07 10:13 | ED.GENADUL1 ---
HPI HPI - General Adult General Chief complaint: Extremity Problem, Nontraumatic Stated complaint: lower extremity swelling, fever Time Seen by Provider: 05/07/25 09:44 Source: patient Mode of arrival: walk-in Limitations: no limitations History of Present Illness HPI narrative: 69-year-old female presents for bleeding from a spider vein. It started yesterday and she put a dressing on it and was afraid to take it off today. She states it bled a great deal yesterday. She is not on any blood thinners. It started while she was drying off after a shower. Related Data Home Medications ?Medication ?Instructions ?Recorded ?Confirmed No Known Home Medications 05/07/25 05/07/25 Allergies Allergy/AdvReac Type Severity Reaction Status Date / Time prednisone Allergy Intermediate heart Verified 05/07/25 09:50 racing Review of Systems ROS Narrative A ten point review of systems is negative except as noted above. PFSH PFSH Social History Little interest or pleasure in doing things: not at all Feeling down, depressed, or hopeless: not at all Exam Narrative Exam Narrative: Nurses note and vital signs reviewed and patient is not hypoxic. General: The patient appears well and in no apparent distress. Patient is resting comfortably on cart. Skin: Warm, dry, no pallor noted. There is no rash noted. Head: Normocephalic, atraumatic Eye: Normal conjunctiva, no drainage Ears, Nose, Mouth, and Throat: oral mucosa is moist. Nares patent. Cardiovascular: Regular Rate and Rhythm Respiratory: Patient is in no distress, no accessory muscle use Back: non-tender, no CVA tenderness bilaterally to percussion. GI: Soft and nontender Musculoskeletal: Dressing is in place in the right lower leg. Upon removal there is bleeding from a tiny vein. It is not pulsatile. It was controlled with pressure. Neurological: A&O, normal speech Psychiatric: Cooperative Constitutional Vital Signs, click to edit/add: Last Vital Signs Temp 98.5 F 05/07/25 09:45 Pulse 77 05/07/25 09:45 Resp 16 05/07/25 09:45 Pulse Ox 96 05/07/25 09:45 O2 Del Method Room Air 05/07/25 09:45 Course Vital Signs Vital signs: Vital Signs Temperature 98.5 F 05/07/25 09:45 Pulse Rate 77 05/07/25 09:45 Respiratory Rate 16 05/07/25 09:45 Pulse Oximetry 96 05/07/25 09:45 Oxygen Delivery Method Room Air 05/07/25 09:45 Temperature 98.5 F 05/07/25 09:45 Pulse Rate 77 05/07/25 09:45 Respiratory Rate 16 05/07/25 09:45 Pulse Oximetry 96 05/07/25 09:45 Oxygen Delivery Method Room Air 05/07/25 09:45 Medical Decision Making MDM Narrative Medical decision making narrative: The following procedure was performed by me. Local infiltration was carried out with 1% lidocaine without epinephrine resulting in complete skin anesthesia. The area was prepped with Betadine x 3 and draped sterilely. Using two 4-0 Ethilon sutures the bleeding was stopped. Dressing applied. No complications. She tolerated the procedure well. Sutures are to be removed in a week. Treatment diagnosis and follow-up were discussed with the patient. Differential Diagnosis Differential Diagnosis: Bleeding vein, bleeding artery Discharge Plan Discharge Chief Complaint: Extremity Problem, Nontraumatic Clinical Impression: Bleeding from varicose vein Patient Disposition: Home, Self-Care Time of Disposition Decision: 10:11 Condition: Good Mode of Transportation: Private Vehicle Prescriptions / Home Meds: No Action No Known Home Medications Print Language: Colombian Instructions: Laceration (ED) Additional Instructions: Sutures to be removed in a week Referrals: Dominguez Whyte MD [Primary Care Provider, Family Practice] - 1 week
[2025-05-07] MEDS: LIDOCAINE HCL 1% 100 MG/10 ML MDV INJ (10:14)
== END 2025-05-07 10:33 | disposition home or self-care (01) ==
PROVIDERS: Emergency Provider Emergency Medicine; PCP Family Medicine
DX: I83.891 Varicose veins of right lower extremity with other complications (principal)
CPT/HCPCS: 12001; 99282